=== PATIENT | female | born 1965 | race Caucasian/White ===

== ENCOUNTER → 2018-04-07 10:47 | Outpatient (CLI) | payer BC, SELFPAY ==
--- NOTE | 2018-04-07 10:49 | BI_ITS ---
MAMMOGRAPHY - BILATERAL SCREENING 3-D ABHINAV SYNTHESIS REASON FOR EXAM: Female, 53 years old. Bilateral Screening 3-D tomosynthesis PERTINENT HISTORY: No significant family history. TECHNIQUE: 2-D mammograms and 3-D Abhinav synthesis of the breast (s) were performed. CAD was performed. COMPARISON: September 10, 2016, July 05, 2015 FINDINGS: The breast composition is compose of extremely dense tissue. There are diffuse scattered calcifications bilaterally unchanged. There are lymph nodes in both axillae unchanged. There are no dominant masses or suspicious calcifications. No other significant abnormalities are identified. BI/Bilat Brst Screen Abhinav Add-On IMPRESSION: No mammographic signs of malignancy. Routine yearly mammograms recommended. ASSESSMENT CATEGORY: BIRADS Category 2: Benign. A letter regarding these results will be sent to the patient by the facility within 30 days. FOLLOW UP RECOMMENDATION: Yearly follow up mammogram recommended. (A) Approximately 10% of breast cancers are not detected by mammography. A normal mammogram should not delay biopsy of a clinically suspicious abnormality. Electronically Signed: Javier Brown MD at 14:04 EDT , Service support ,
--- NOTE | 2018-04-07 10:49 | BI_ITS ---
MAMMOGRAPHY - BILATERAL SCREENING 3-D ABHINAV SYNTHESIS REASON FOR EXAM: Female, 53 years old. Bilateral Screening 3-D tomosynthesis PERTINENT HISTORY: No significant family history. TECHNIQUE: 2-D mammograms and 3-D Abhinav synthesis of the breast (s) were performed. CAD was performed. COMPARISON: September 10, 2016, July 05, 2015 FINDINGS: The breast composition is compose of extremely dense tissue. There are diffuse scattered calcifications bilaterally unchanged. There are lymph nodes in both axillae unchanged. There are no dominant masses or suspicious calcifications. No other significant abnormalities are identified. BI/SCREENING MAMM (CAD), BILAT IMPRESSION: No mammographic signs of malignancy. Routine yearly mammograms recommended. ASSESSMENT CATEGORY: BIRADS Category 2: Benign. A letter regarding these results will be sent to the patient by the facility within 30 days. FOLLOW UP RECOMMENDATION: Yearly follow up mammogram recommended. (A) Approximately 10% of breast cancers are not detected by mammography. A normal mammogram should not delay biopsy of a clinically suspicious abnormality. Electronically Signed: Javier Brown MD at 14:04 EDT , Service support ,
== END ==
PROVIDERS: Family Provider Family Medicine; PCP Family Medicine; Visit Provider Obstetrics & Gynecology
DX: Z12.31 Encounter for screening mammogram for malignant neoplasm of breast (principal)
CPT/HCPCS: 77063; 77067

== ENCOUNTER → 2018-09-08 09:47 | Outpatient (CLI) | payer BC, SELFPAY ==
[2018-04-04 09:32] VITALS: BMI 24.7
[2018-09-08 12:09] LABS: Anion Gap 7 (5-15); BUN 14 mg/dL (7-18); BUN/Creat Ratio 17.3 RATIO (10-20); Calcium,Total 9.3 mg/dL (8.5-10.1); Chloride 107 mmol/L (98-107); Cholesterol 218 mg/dL (200); Creatinine, Serum 0.81 mg/dL (0.55-1.02); EST Glomerular Filtration Rate 79 mL/min (>60); Est Glom Filt Rate - Afr Amer 95 mL/min (>60); Glucose 87 mg/dL (74-106); High Density Lipoprotein 83 mg/dL; Potassium 4.4 mmol/L (3.5-5.1); Sodium Level 141 mmol/L (136-145); Triglycerides 60 mg/dL; Very Low Density Lipoprotein 12 mg/dL (5-40)
== END ==
PROVIDERS: Family Provider Family Medicine; PCP Family Medicine; Referring Provider Family Medicine; Visit Provider Family Medicine
DX: I10 Essential (primary) hypertension (principal)
CPT/HCPCS: 36415; 80048; 80061

== ENCOUNTER → 2019-03-22 11:45 | Outpatient (CLI) | payer BC, SELFPAY ==
[2018-04-04 09:32] VITALS: BMI 24.7
[2019-03-22 13:46] LABS: Color, Urine Yellow (Yellow); Glucose, Dipstick Normal (Normal); Ketone-Dipstick Negative (Negative); Leukocyte Esterase-Dipstick 500 /ul (Negative); Nitrite-Dipstick Negative (Negative); Occult Blood-Urine 25 /ul (Negative); Protein-Dipstick 15 mg/dl (Negative); Urine Bilirubin Dipstick Negative (Negative); Urine Clarity Sl. Cloudy (Clear); Urine Urobilinogen Normal (Normal)
[2019-03-22 14:04] LABS: Red Blood Cells-Urine 0-5 SEEN /hpf (0-5); White Blood Cells 50-100 SEEN /hpf (0-5)
[2019-03-22 14:05] LABS: Bacteria RARE /hpf (None Seen); Mucous, Urine RARE /hpf (<or=2+); Squamous Epithelial Cells - UA 0-5 SEEN /hpf (5-10)
== END ==
PROVIDERS: Family Provider Family Medicine; PCP Family Medicine; Visit Provider Family Medicine
DX: R30.0 Dysuria (principal)
CPT/HCPCS: 81001; 87086; 87088

== ENCOUNTER → 2019-04-20 12:09 | Outpatient (CLI) | payer BC, SELFPAY ==
[2018-04-04 09:32] VITALS: BMI 24.7
--- NOTE | 2019-04-20 12:11 | BI_ITS ---
MAMMOGRAPHY - BILATERAL SCREENING 3-D TOMOSYNTHESIS REASON FOR EXAM: Female, 54 years old. Bilateral Screening 3-D tomosynthesis PERTINENT HISTORY: No significant family history. TECHNIQUE: 2-D mammograms and 3-D Tomosynthesis of the breast (s) were performed. CAD was performed. COMPARISON: 04/07/2018 FINDINGS: The breast composition is heterogeneously dense that can obscure small breast masses. Scattered benign calcifications are seen. No dense spiculated masses or suspicious microcalcifications are identified. No architectural distortion is identified. There is no skin thickening or retraction. There has been no significant change since the prior study. BI/SCREEN MAMM (CAD) W/ABHINAV BILAT IMPRESSION: No mammographic signs of malignancy. Routine yearly mammograms recommended. ASSESSMENT CATEGORY: BIRADS Category 2: Benign. A letter regarding these results will be sent to the patient by the facility within 30 days. FOLLOW UP RECOMMENDATION: Yearly follow up mammogram recommended. (A) Approximately 10% of breast cancers are not detected by mammography. A normal mammogram should not delay biopsy of a clinically suspicious abnormality. Electronically Signed: Carl Nelson MD at 15:25 EDT Tel [phone], Service support ,
== END ==
PROVIDERS: Family Provider Family Medicine; PCP Family Medicine; Referring Provider Nurse Practitioner Women's Health; Visit Provider Nurse Practitioner Women's Health
DX: Z12.31 Encounter for screening mammogram for malignant neoplasm of breast (principal)
CPT/HCPCS: 77063; 77067

== ENCOUNTER → 2019-06-09 16:59 | Outpatient (CLI) | payer BC, SELFPAY ==
[2019-06-09 14:14] VITALS: BMI 24.7
[2019-06-15 16:45] LABS: HPV APTIMA, High Risk Negative (Negative)
== END ==
PROVIDERS: Family Provider Family Medicine; PCP Family Medicine; Referring Provider Nurse Practitioner Women's Health; Visit Provider Nurse Practitioner Women's Health
DX: Z12.4 Encounter for screening for malignant neoplasm of cervix (principal)
CPT/HCPCS: 87624; 88175; G0145

== ENCOUNTER → 2020-01-11 13:42 | Outpatient (CLI) | payer BC, SELFPAY ==
[2019-10-19 09:49] VITALS: BMI 24.7
== END ==
PROVIDERS: PCP Family Medicine; Referring Provider Family Medicine; Visit Provider Family Medicine
DX: R39.11 Hesitancy of micturition (principal)
CPT/HCPCS: 87086

== ENCOUNTER → 2020-01-18 13:50 | Outpatient (CLI) | payer BC, SELFPAY ==
[2019-10-19 09:49] VITALS: BMI 24.7
--- NOTE | 2020-01-18 13:59 | US_ITS ---
STUDY: NECK ULTRASOUND REASON FOR EXAM: Female, 54 years old. LT NECK LYMPHADENOPATHY TECHNIQUE: Ultrasound evaluation of the neck was performed with real-time and static mejia-scale imaging. COMPARISON: None. FINDINGS: A benign-appearing 1.46 x 0.28 x 0.46 cm lymph node with eccentric fatty hilus is identified in the left neck. No other lymph node/adenopathy demonstrated. US/Head/Neck Soft Tissue IMPRESSION: Single, benign-appearing left cervical lymph node is seen. Electronically Signed: Moncho Garcia MD at 14:23 EDT , Service support ,
== END ==
PROVIDERS: PCP Family Medicine; Referring Provider Family Medicine; Visit Provider Family Medicine
DX: R59.0 Localized enlarged lymph nodes (principal)
CPT/HCPCS: 76536

== ENCOUNTER → 2020-03-21 07:49 | Outpatient (CLI) | payer BC, SELFPAY ==
[2019-10-19 09:49] VITALS: BMI 24.7
[2020-03-21 10:04] LABS: Absolute Lymphocyte Count 1.96 X10^3/uL (0.83-4.51); Absolute Neutrophil Count 2.6 X10^3/uL (2.0-7.7); Basophil# 0.03 X10^3/uL; Basophil% 0.6 % (0-1); Eosinophil# 0.14 X10^3/uL; Eosinophils% 2.7 % (0-5); Hematocrit 42.8 % (37-47); Hemoglobin 13.9 g/dL (12.0-15.0); Lymphocyte # 1.96 X10^3/ul (4.0); Lymphocyte % 37.5 % (19-41); Mean Corp Hgb Conc 32.5 g/dL (32-36); Mean Corpuscular Hgb 28.8 pg (27.0-32.0); Mean Corpuscular Volume 88.8 fL (81-99); Mean Platelet Vol. 10.4 fl (6.2-12.0); Monocyte% 9.6 % (0-10); NRBC Flagged by Analyzer 0 % (0-5); Neutrophil # 2.58 X10^3/uL (2.7-7.7); Neutrophil % 49.4 % (47-70); Platelet Count 251 K/mm3 (150-450); RBC Distribution Width CV 12.2 % (11.6-14.6); RBC Distribution Width SD 39.6 fl (35.1-43.9); Red Blood Count 4.82 M/mm3 (4.2-5.4); White Blood Count 5.2 K/mm3 (4.4-11.0)
[2020-03-21 10:12] LABS: ALB/GLOB Ratio 1.1 RATIO (0.9-2.4); AST(SGOT) 20 U/L (15-37); Alanine Aminotransfer ALT/SGPT 26 U/L (13-56); Albumin, Serum 3.9 g/dL (3.2-5.0); Alkaline Phosphatase 64 U/L (45-117); Anion Gap 5 (5-15); BUN 17 mg/dL (7-18); BUN/Creat Ratio 23.9 RATIO (10-20); Calcium,Total 8.8 mg/dL (8.5-10.1); Chloride 109 mmol/L (98-107); Cholesterol 226 mg/dL (200); Creatinine, Serum 0.71 mg/dL (0.55-1.02); EST Glomerular Filtration Rate 91 mL/min (>60); Est Glom Filt Rate - Afr Amer 110 mL/min (>60); Globulin 3.5 g/dL (2.2-4.2); Glucose 87 mg/dL (74-106); High Density Lipoprotein 74 mg/dL; Potassium 4.2 mmol/L (3.5-5.1); Protein, Total 7.4 g/dL (6.4-8.2); Sodium Level 140 mmol/L (136-145); Triglycerides 62 mg/dL; Very Low Density Lipoprotein 12 mg/dL (5-40)
== END ==
PROVIDERS: PCP Family Medicine; Referring Provider Family Medicine; Visit Provider Family Medicine
DX: I10 Essential (primary) hypertension (principal); R59.0 Localized enlarged lymph nodes
CPT/HCPCS: 36415; 80053; 80061; 85025

== ENCOUNTER → 2020-07-25 13:02 | Outpatient (CLI) | payer BC, SELFPAY ==
[2019-10-19 09:49] VITALS: BMI 24.7
--- NOTE | 2020-07-25 13:03 | BI_ITS ---
MAMMOGRAPHY - BILATERAL SCREENING REASON FOR EXAM: Female, 55 years old. Routine annual screening examination. PERTINENT HISTORY: Screening TECHNIQUE: Digital bilateral breast abhinav (3D mammographic acquisition) in the CC and MLO projections. 2-D mediolateral oblique (MLO) and craniocaudad (CC) views of both breasts were obtained. CAD: Full Field Digital Mammography with Computer Added Detection was performed. COMPARISON: 04/20/2019 FINDINGS: Breast Composition: Dense There are no dominant masses or suspicious calcifications. No other significant abnormalities are identified. There are scattered calcifications noted in both breasts but these were seen previously and are unchanged. BI/SCREEN MAMM (CAD) W/ABHINAV BILAT IMPRESSION: Stable bilateral screening mammogram. Yearly follow-up mammogram recommended. (A) ASSESSMENT CATEGORY: BIRADS Category 1: Negative. A letter regarding these results will be sent to the patient by the facility within 30 days. Approximately 10% of breast cancers are not detected by mammography. A normal mammogram should not delay biopsy of a clinically suspicious abnormality. [id number] Electronically Signed: Matt Deluna, at 10:06 EST Tel , Service support ,
== END ==
PROVIDERS: PCP Family Medicine; Referring Provider Obstetrics & Gynecology; Visit Provider Obstetrics & Gynecology
DX: Z12.31 Encounter for screening mammogram for malignant neoplasm of breast (principal)
CPT/HCPCS: 77063; 77067

== ENCOUNTER → 2021-03-27 09:36 | Outpatient (CLI) | payer BC, SELFPAY ==
[2020-07-25 13:38] VITALS: BMI 25.9
[2021-03-27 13:06] LABS: ALB/GLOB Ratio 1.1 RATIO (0.9-2.4); AST(SGOT) 19 U/L (15-37); Alanine Aminotransfer ALT/SGPT 23 U/L (13-56); Albumin, Serum 3.6 g/dL (3.2-5.0); Alkaline Phosphatase 57 U/L (45-117); Anion Gap 5 (5-15); BUN 17 mg/dL (7-18); BUN/Creat Ratio 26.2 RATIO (10-20); Calcium,Total 8.9 mg/dL (8.5-10.1); Chloride 106 mmol/L (98-107); Cholesterol 213 mg/dL (200); Creatinine, Serum 0.65 mg/dL (0.55-1.02); EST Glomerular Filtration Rate 101 mL/min (>60); Est Glom Filt Rate - Afr Amer 122 mL/min (>60); Globulin 3.4 g/dL (2.2-4.2); Glucose 86 mg/dL (74-106); High Density Lipoprotein 79 mg/dL; Sodium Level 138 mmol/L (136-145); Triglycerides 31 mg/dL; Very Low Density Lipoprotein 6 mg/dL (5-40)
== END ==
PROVIDERS: PCP Family Medicine; Referring Provider Family Medicine; Visit Provider Family Medicine
DX: I10 Essential (primary) hypertension (principal)
CPT/HCPCS: 36415; 80053; 80061

== ENCOUNTER 2021-10-10 14:28 | Outpatient (CLI) | payer BC, SELFPAY ==
[2021-10-10 18:31] LABS: Vitamin B12 894 pg/mL (211-911); Vitamin D,25 Hydroxy 37.9 ng/mL
[2021-10-10 18:41] LABS: Anion Gap 6 (5-15); BUN 16 mg/dL (7-18); BUN/Creat Ratio 24.4 RATIO (10-20); Calcium,Total 9.3 mg/dL (8.5-10.1); Chloride 107 mmol/L (98-107); Creatinine, Serum 0.66 mg/dL (0.55-1.02); EST Glomerular Filtration Rate 99 mL/min (>60); Est Glom Filt Rate - Afr Amer 120 mL/min (>60); Glucose 84 mg/dL (74-106); Potassium 3.6 mmol/L (3.5-5.1); Sodium Level 141 mmol/L (136-145); Thyroid Stim Hormone (TSH) 0.49 uIU/mL (0.358-3.74)
== END 2021-10-10 23:59 | disposition home or self-care (01) ==
LOC: MFPLAB 14:29
PROVIDERS: PCP Nurse Practitioner Family; Referring Provider Nurse Practitioner Family; Visit Provider Nurse Practitioner Family
DX: I10 Essential (primary) hypertension (principal); R53.83 Other fatigue; E53.8 Deficiency of other specified B group vitamins; E55.9 Vitamin D deficiency, unspecified
CPT/HCPCS: 36415; 80048; 82306; 82607; 84443

== ENCOUNTER → 2022-04-10 | Outpatient (CLI) | payer BC, SELFPAY ==
[2022-04-10 18:08] LABS: Vitamin B12 555 pg/mL (211-911); Vitamin D,25 Hydroxy 32.6 ng/mL
[2022-04-10 18:24] LABS: Anion Gap 6 (5-15); BUN 15 mg/dL (7-18); BUN/Creat Ratio 18.6 RATIO (10-20); Calcium,Total 9.7 mg/dL (8.5-10.1); Chloride 106 mmol/L (98-107); Cholesterol 252 mg/dL (200); Creatinine, Serum 0.81 mg/dL (0.55-1.02); EST Glomerular Filtration Rate 78 mL/min (>60); Est Glom Filt Rate - Afr Amer 94 mL/min (>60); Glucose 90 mg/dL (74-106); High Density Lipoprotein 84 mg/dL; Potassium 3.5 mmol/L (3.5-5.1); Sodium Level 139 mmol/L (136-145); Triglycerides 71 mg/dL; Very Low Density Lipoprotein 14 mg/dL (5-40)
== END | disposition home or self-care (01) ==
LOC: MFPLAB 15:00
PROVIDERS: PCP Family Medicine; Referring Provider Family Medicine; Visit Provider Family Medicine
DX: I10 Essential (primary) hypertension (principal); R53.83 Other fatigue; E53.8 Deficiency of other specified B group vitamins; E55.9 Vitamin D deficiency, unspecified; E78.5 Hyperlipidemia, unspecified
CPT/HCPCS: 36415; 80048; 80061; 82306; 82607; 84443

== ENCOUNTER → 2022-09-05 | Outpatient (CLI) | payer BC, SELFPAY | END | disposition home or self-care (01) | LOC: LABSPEC 15:04 | PROVIDERS: PCP Family Medicine; Referring Provider Obstetrics & Gynecology; Visit Provider Obstetrics & Gynecology | DX: N39.0 Urinary tract infection, site not specified (principal) | CPT/HCPCS: 87086; 87088; 87186 ==

== ENCOUNTER → 2022-10-30 | Outpatient (CLI) | payer BC, SELFPAY ==
--- NOTE | 2022-10-30 14:13 | BI_ITS ---
MAMMOGRAPHY - BILATERAL SCREENING REASON FOR EXAM: Female, 57 years old. Routine annual screening examination. PERTINENT HISTORY: Non-contributory. TECHNIQUE: Digital bilateral breast abhinav (3D mammographic acquisition) in the CC and MLO projections. 2-D mediolateral oblique (MLO) and craniocaudad (CC) views of both breasts were obtained. CAD: Full Field Digital Mammography with Computer Added Detection was performed. COMPARISON: Comparison is made with prior study dated March 05, 2022 and July 25, 2020. FINDINGS: Breast Composition: The breasts are extremely dense, which lowers the sensitivity of mammography. There are no dominant masses or suspicious calcifications. Stable scattered bilateral microcalcifications. Stable small benign-appearing bilateral axillary lymph nodes. No other significant abnormalities are identified. There has been no significant change since the prior study. BI/SCRN MAMM (CAD)W/ABHINAV BILAT IMPRESSION: Stable bilateral screening mammogram. Yearly follow-up mammogram recommended. (A) ASSESSMENT CATEGORY: BIRADS Category 2: Benign. A letter regarding these results will be sent to the patient by the facility within 30 days. Approximately 10% of breast cancers are not detected by mammography. A normal mammogram should not delay biopsy of a clinically suspicious abnormality. [id number] Electronically Signed: Jacobo Aguilar MD at 8:51 EST ,
== END | disposition home or self-care (01) ==
LOC: OPBI 14:10
PROVIDERS: PCP Family Medicine; Visit Provider Obstetrics & Gynecology
DX: Z12.31 Encounter for screening mammogram for malignant neoplasm of breast (principal)
CPT/HCPCS: 77063; 77067

== ENCOUNTER → 2022-12-20 | Outpatient (CLI) | payer BC, SELFPAY ==
--- NOTE | 2022-12-20 11:47 | RAD_ITS ---
STUDY: X-RAY - SACRUM/COCCYX REASON FOR EXAM: Female, 57 years old. ongoing pain TECHNIQUE: 3 view(s) of the sacrum and coccyx were obtained. COMPARISON: None. FINDINGS: Normal bilateral sacroiliac joints. Normal visualized sacral ala and fused sacral bodies. Normal sacrococcygeal junction with a normal angulation. Normal coccygeal segments. The presacral soft tissue structures are unremarkable. RAD/Sacrum-Coccyx min 2 Views IMPRESSION: Normal x-rays of the sacrum and coccyx. Electronically Signed: Gabriel Figueroa MD at 19:01 EDT ,
== END | disposition home or self-care (01) ==
LOC: MTRAD 11:47
PROVIDERS: PCP Family Medicine; Referring Provider Nurse Practitioner Family; Visit Provider Nurse Practitioner Family
DX: M53.3 Sacrococcygeal disorders, not elsewhere classified (principal)
CPT/HCPCS: 72220

== ENCOUNTER → 2023-03-17 | Outpatient (CLI) | payer BC, SELFPAY | END | disposition home or self-care (01) | LOC: LABSPEC 14:51 | PROVIDERS: PCP Family Medicine; Referring Provider Physician Assistant Surgical; Visit Provider Physician Assistant Surgical | DX: R30.0 Dysuria (principal) | CPT/HCPCS: 87086 ==

== ENCOUNTER → 2023-09-24 | Outpatient (CLI) | payer BC, SELFPAY ==
--- OUTSIDE RECORDS SUMMARY | 2023-09-24 17:21 | XMS RPT_ITS | CCD ---
Author Name Unknown Address [address] [place] [address] Organization [facility] Results Test Name Value Interpretation Reference Range Facil ity Summary Purpose Family History No Family History Records Found Advance Directives No Advanced Directives Records Found Additional Source Comments INFORMATION SOURCE (unrecogn ized section and content) FOR RECORDS PERTAINING TO PATIENTS WHO ARE OR HAVE BEEN ENROLLED IN A CHEMICAL DEPENDENCY/SUBSTANCEABUSE PROGRAM, SOME INFORMATION MAY BE OMITTED. This clinical summary was aggregated from multiple sources. Caution should be exercised in using it in the provision of clinical care. This summary normalizes information from multiple sources, and as a consequence, information in this document may materially change the coding, format and clinical context of patient data. In addition, data may be omitted in some cases. CLINICAL DECISIONS SHOULD BE BASED ON THE PRIMARY CLINICAL RECORDS. [employer] provides no warranty or guarantee of the accuracy or completeness of information in this document.
[2023-09-29 15:07] LABS: HPV APTIMA, High Risk Negative (Negative)
== END | disposition home or self-care (01) ==
LOC: US 16:21
PROVIDERS: PCP Family Medicine; Referring Provider Obstetrics & Gynecology; Visit Provider Obstetrics & Gynecology
DX: Z12.4 Encounter for screening for malignant neoplasm of cervix (principal)
CPT/HCPCS: 87624; 88175; G0145

== ENCOUNTER → 2023-09-30 | Outpatient (CLI) | payer BC, SELFPAY ==
--- NOTE | 2023-09-30 15:39 | US_ITS ---
INDICATION: ABD PAIN-LLQ EXAMINATION: Ultrasound US Pelvis Non OB Complete With Transvaginal Imaging TECHNIQUE: Transabdominal and transvaginal pelvic ultrasound was performed. Grayscale, spectral waveform, and color flow Doppler evaluation of the adnexa. COMPARISON: None. FINDINGS: UTERUS: Retroverted. The uterus measures 7.8 x 4.2 x 3.5 cm. Markedly heterogenous myometrial echotexture without well-defined mass. The endometrial stripe measures 1.2 mm in AP diameter which is within normal limits. Cervical canal contains fluid with irregular wall thickening up to 6 mm. Prominent periuterine vasculature. RIGHT OVARY: 1.8 x 1.4 x 0.9 cm. Non-enlarged, normal echogenicity. There is normal arterial inflow and venous outflow present in the right ovary. LEFT OVARY: 2.7 x 1.6 x 1.4 cm. Anechoic cyst measures up to 1.3 cm. There is normal arterial inflow and venous outflow present in the left ovary. FREE FLUID: None. US/Pelvic w/ Transvaginal IMPRESSION: Markedly heterogenous uterine myometrial echotexture without distinct focal mass lesion. Abnormal appearance of the cervix with wall thickening and fluid contents in the cervical canal. Recommend gynecological consultation and correlation with Pap smear. 13 mm simple cyst left ovary. Recommend routine annual sonographic follow-up. Electronically Signed: Vikas Pillai MD at 20:30 EST ,
--- OUTSIDE RECORDS SUMMARY | 2023-09-30 15:57 | XMS RPT_ITS | CCD ---
Author Name Unknown Address [address] [place] [address] Organization [facility] Results Test Name Value Interpretation [...] BE BASED ON THE PRIMARY CLINICAL RECORDS. [employer] provides no warranty or guarantee of the accuracy or completeness of information in this document.
== END | disposition home or self-care (01) ==
PROVIDERS: PCP Family Medicine; Referring Provider Obstetrics & Gynecology; Visit Provider Obstetrics & Gynecology
DX: R10.9 Unspecified abdominal pain (principal)
CPT/HCPCS: 76830; 76856

== ENCOUNTER → 2023-09-30 | Outpatient (CLI) | payer BC, SELFPAY ==
--- OUTSIDE RECORDS SUMMARY | 2023-09-30 08:31 | XMS RPT_ITS | CCD ---
Author Name Unknown Address [address] [place] [address] Organization [facility] Results Test Name Value Interpretation [...] BE BASED ON THE PRIMARY CLINICAL RECORDS. [employer] provides no warranty or guarantee of the accuracy or completeness of information in this document.
[2023-09-30 09:56] LABS: Hemoglobin 14.2 g/dL (12.0-15.0); Mean Corp Hgb Conc 33.8 g/dL (32-36); Mean Corpuscular Hgb 29.1 pg (27.0-32.0); Mean Corpuscular Volume 86.1 fL (81-99); Mean Platelet Vol. 9.9 fl (6.2-12.0); Platelet Count 236 K/mm3 (150-450); RBC Distribution Width CV 12.6 % (11.6-14.6); RBC Distribution Width SD 39.7 fl (35.1-43.9); Red Blood Count 4.88 M/mm3 (4.2-5.4); White Blood Count 4.5 K/mm3 (4.4-11.0)
[2023-09-30 10:31] LABS: Vitamin B12 715 pg/mL (211-911); Vitamin D,25 Hydroxy 53.7 ng/mL
[2023-09-30 10:48] LABS: Microalbumin,Random Urine < 5.0 mg/L (NO RANGE EST.)
[2023-09-30 11:02] LABS: ALB/GLOB Ratio 1.1 RATIO (0.9-2.4); AST(SGOT) 17 U/L (15-37); Alanine Aminotransfer ALT/SGPT 32 U/L (13-56); Albumin, Serum 3.9 g/dL (3.2-5.0); Alkaline Phosphatase 66 U/L (45-117); Anion Gap 3 (5-15); BUN 15 mg/dL (7-18); BUN/Creat Ratio 20.4 RATIO (10-20); Calcium,Total 9.3 mg/dL (8.5-10.1); Chloride 105 mmol/L (98-107); Cholesterol 236 mg/dL (200); Creatinine, Serum 0.73 mg/dL (0.55-1.02); EST Glomerular Filtration Rate 87 mL/min (>60); Est Glom Filt Rate - Afr Amer 105 mL/min (>60); Globulin 3.5 g/dL (2.2-4.2); Glucose 100 mg/dL (74-106); High Density Lipoprotein 78 mg/dL; Potassium 4.2 mmol/L (3.5-5.1); Protein, Total 7.4 g/dL (6.4-8.2); Sodium Level 135 mmol/L (136-145); Thyroid Stim Hormone (TSH) 0.69 uIU/mL (0.358-3.74); Triglycerides 68 mg/dL; Very Low Density Lipoprotein 14 mg/dL (5-40)
== END | disposition home or self-care (01) ==
LOC: MTLAB 08:18
PROVIDERS: PCP Family Medicine; Referring Provider Family Medicine; Visit Provider Family Medicine
DX: I10 Essential (primary) hypertension (principal); E78.5 Hyperlipidemia, unspecified; E55.9 Vitamin D deficiency, unspecified; E53.8 Deficiency of other specified B group vitamins
CPT/HCPCS: 36415; 80053; 80061; 82043; 82306; 82570; 82607; 84443; 85027

== ENCOUNTER → 2023-12-10 | Outpatient (CLI) | payer BC, SELFPAY ==
--- NOTE | 2023-12-10 12:49 | BI_ITS ---
MAMMOGRAPHY - BILATERAL SCREENING REASON FOR EXAM: Female, 58 years old. Routine annual screening examination. PERTINENT HISTORY: Non-contributory. TECHNIQUE: Digital bilateral breast abhinav (3D mammographic acquisition) in the CC and MLO projections. 2-D mediolateral oblique (MLO) and craniocaudad (CC) views of both breasts were obtained. CAD: Full Field Digital Mammography with Computer Added Detection was performed. COMPARISON: Comparison is made with prior examination of October 30, 2022 and September 05, 2021. FINDINGS: Breast Composition: The breasts are extremely dense, which lowers the sensitivity of mammography. There are no dominant masses or suspicious calcifications. Stable bilateral fat containing axillary lymph nodes. Stable scattered bilateral microcalcifications. No other significant abnormalities are identified. There has been no significant change since the prior study. BI/SCRN MAMM (CAD)W/ABHINAV BILAT IMPRESSION: Stable bilateral screening mammogram. Yearly follow-up mammogram recommended. (A) ASSESSMENT CATEGORY: BIRADS Category 2: Benign. A letter regarding these results will be sent to the patient by the facility within 30 days. Approximately 10% of breast cancers are not detected by mammography. A normal mammogram should not delay biopsy of a clinically suspicious abnormality. [id number] Electronically Signed: Jacobo Aguilar MD at 14:59 EDT ,
== END | disposition home or self-care (01) ==
LOC: OPBI 12:49
PROVIDERS: PCP Family Medicine; Referring Provider Obstetrics & Gynecology; Visit Provider Obstetrics & Gynecology
DX: Z12.31 Encounter for screening mammogram for malignant neoplasm of breast (principal)
CPT/HCPCS: 77063; 77067

== ENCOUNTER → 2024-01-08 | Outpatient (CLI) | payer BC, SELFPAY ==
[2024-01-08 16:37] LABS: Uric Acid 3.3 mg/dL (2.6-6.0)
== END | disposition home or self-care (01) ==
LOC: MFPLAB 12:19
PROVIDERS: PCP Family Medicine; Visit Provider Family Medicine
DX: M79.673 Pain in unspecified foot (principal)
CPT/HCPCS: 36415; 84550

== ENCOUNTER → 2024-01-15 | Outpatient (CLI) | payer BC, SELFPAY ==
--- NOTE | 2024-01-15 16:06 | RAD_ITS ---
STUDY: X-RAY - RIGHT FOOT CLINICAL: Female, 58 years old. RIght foot pain TECHNIQUE: 3 view(s) of the foot. COMPARISON: None. FINDINGS: Normal talus, calcaneus, and tarsal bones. Normal visualized subtalar, talonavicular, calcaneocuboid, tarsal and tarsometatarsal articulations. Normal metatarsi. Mild degenerative changes of the metatarsophalangeal joint of the great toe. Normal tibial and fibular sesamoid bones. Normal interphalangeal joint of the great toe. Normal phalanges of the great toe. Normal second through fifth metatarsophalangeal joints. Normal interphalangeal joints and phalanges of the lesser toes. The soft tissue structures are unremarkable. RAD/Foot min 3 Views IMPRESSION: Mild degenerative changes. No acute fracture or other significant bony pathology. Electronically Signed: Gabriel Figueroa MD at 22:35 EDT ,
== END | disposition home or self-care (01) ==
LOC: MTRAD 16:01
PROVIDERS: PCP Family Medicine; Referring Provider Family Medicine; Visit Provider Family Medicine
DX: M79.673 Pain in unspecified foot (principal)
CPT/HCPCS: 73630

== ENCOUNTER → 2024-04-21 | Outpatient (CLI) | payer BC, SELFPAY ==
[2024-04-21 10:30] LABS: Bacteria 0 SEEN /hpf (None Seen); Mucous, Urine 0 SEEN /hpf (<or=2+); Red Blood Cells-Urine 0 SEEN /hpf (0-5)
[2024-04-21 10:42] LABS: Color, Urine Yellow (Yellow); Glucose, Dipstick Normal (Normal); Ketone-Dipstick Negative (Negative); Leukocyte Esterase-Dipstick 500 /ul (Negative); Nitrite-Dipstick Negative (Negative); Occult Blood-Urine 25 /ul (Negative); Protein-Dipstick Negative (Negative); Specific Gravity, Urine 1.005 (1.002-1.030); Urine Bilirubin Dipstick Negative (Negative); Urine Clarity Sl. Cloudy (Clear); Urine Urobilinogen Normal (Normal); Urine pH 6.5 (5.0 - 8.0)
[2024-04-21 11:10] LABS: Squamous Epithelial Cells - UA 0-5 SEEN /hpf (5-10); White Blood Cells 25-50 SEEN /hpf (0-5)
== END | disposition home or self-care (01) ==
LOC: LABSPEC 10:18
PROVIDERS: PCP Family Medicine; Referring Provider Physician Assistant; Visit Provider Physician Assistant
DX: R30.0 Dysuria (principal)
CPT/HCPCS: 81001; 87086

== ENCOUNTER → 2024-05-04 | Outpatient (CLI) | payer BC, SELFPAY ==
--- NOTE | 2024-05-04 11:23 | RAD_ITS ---
STUDY: X-RAY - LEFT KNEE REASON FOR EXAM: Female, 59 years old. Pain -- left knee per Irma TECHNIQUE: 4 view(s) of the knee. COMPARISON: None. FINDINGS: Normal visualized distal femur. Normal visualized proximal tibia and fibula. Normal proximal tibiofibular articulation. Normal medial femorotibial compartment. Normal lateral femorotibial compartment. Normal patellofemoral articulation. The soft tissue structures are unremarkable. RAD/Knee 4 or More Views IMPRESSION: Normal x-ray examination of the knee. Electronically Signed: Isra Lora MD at 8:30 EDT ,
== END | disposition home or self-care (01) ==
LOC: MTRAD 11:17
PROVIDERS: PCP Family Medicine; Referring Provider Family Medicine; Visit Provider Family Medicine
DX: M25.569 Pain in unspecified knee (principal)
CPT/HCPCS: 73564

== ENCOUNTER → 2024-11-11 | Outpatient (CLI) | payer OTHER, SELFPAY | END | disposition home or self-care (01) | LOC: LABSPEC 15:11 | PROVIDERS: PCP Family Medicine | DX: N39.0 Urinary tract infection, site not specified (principal) | CPT/HCPCS: 87086 ==

== ENCOUNTER → 2024-12-28 | Outpatient (CLI) | payer OTHER, SELFPAY ==
--- NOTE | 2024-12-28 10:45 | BI_ITS ---
EXAM: SCRN MAMM (CAD)W/ABHINAV BILAT 12/28/2024 CLINICAL HISTORY: F, Age 59 y/o , SCREENING MAMMOGRAM TECHNIQUE: Bilateral screening digital breast tomosynthesis with 2D and 3D images. Computer aided detection. COMPARISON: Prior exam(s) dated 12/10/2023, 10/30/2022, 09/05/2021, 07/25/2020. FINDINGS: TISSUE DENSITY: The breast tissue is extremely dense which lowers the sensitivity of mammography. The mammogram demonstrates that the patient has dense breasts. Supplemental screening with whole breast ultrasound or MRI may be considered for further evaluation. Bilateral Breast Mammographic Findings: No significant masses, calcifications or other abnormalities are identified. BI/SCRN MAMM (CAD)W/ABHINAV BILAT IMPRESSION: Right Breast: BIRADS 1 NEGATIVE. Left Breast: BIRADS 1 NEGATIVE. OVERALL FINAL ASSESSMENT: BIRADS 1 NEGATIVE. RECOMMENDATION: Routine annual follow-up in 1 Year A letter with findings and recommendations will be mailed to the patient. Reading Location: [id number]
== END | disposition home or self-care (01) ==
PROVIDERS: PCP Family Medicine; Referring Provider Obstetrics & Gynecology; Visit Provider Obstetrics & Gynecology
DX: Z12.31 Encounter for screening mammogram for malignant neoplasm of breast (principal)
CPT/HCPCS: 77063; 77067

== ENCOUNTER → 2025-03-29 | Outpatient (CLI) | payer OTHER, SELFPAY ==
[2025-03-29 14:25] LABS: Hematocrit 42.0 % (37-47); Hemoglobin 13.9 g/dL (12.0-15.0); Immature Granulocytes Count 0.010 X10^3/uL (0.0-0.0); Mean Corp Hgb Conc 33.1 g/dL (32-36); Mean Corpuscular Volume 87.5 fL (81-99); Mean Platelet Vol. 10.2 fl (6.2-12.0); NRBC Flagged by Analyzer 0 % (0-5); Platelet Count 249 K/mm3 (150-450); RBC Distribution Width CV 12.4 % (11.6-14.6); RBC Distribution Width SD 39.8 fl (35.1-43.9); Red Blood Count 4.80 M/mm3 (4.2-5.4); White Blood Count 5.6 K/mm3 (4.4-11.0)
[2025-03-29 14:34] LABS: AST(SGOT) 21 U/L (<=31); Alanine Aminotransfer ALT/SGPT 22 U/L (<=34); Albumin, Serum 4.4 g/dL (3.5-5.0); Alkaline Phosphatase 71 U/L (35-104); Anion Gap 11 (5-15); BUN 17 mg/dL (4-19); BUN/Creat Ratio 22.9 RATIO (10-20); Calcium,Total 9.8 mg/dL (7.6-11.0); Carbon Dioxide 22.6 mmol/L (21.0-32.0); Chloride 105 mmol/L (98-108); Cholesterol 271 mg/dL (<=200); Globulin 2.8 g/dL (2.2-4.2); Glucose 96 mg/dL (70-99); Low Density Lipoprotein Calc. 179 mg/dL; Potassium 4.3 mmol/L (3.3-5.1); Triglycerides 49 mg/dL; Very Low Density Lipoprotein 10 mg/dL (5-40); cholesterol:hdl ratio screen 3.32
== END | disposition home or self-care (01) ==
LOC: MTLAB 10:00
PROVIDERS: PCP Family Medicine; Referring Provider Family Medicine; Visit Provider Family Medicine
DX: I10 Essential (primary) hypertension (principal)
CPT/HCPCS: 36415; 80053; 80061; 85025

== ENCOUNTER → 2025-07-27 | Outpatient (CLI) | payer OTHER, SELFPAY ==
--- OUTSIDE RECORDS SUMMARY | 2025-07-27 15:35 | XMS RPT_ITS | CCD ---
Author Organization [facility] Care Team Providers Care Patrol Lady Name Role Phone DO Amber Metcalf Primary Care Provider DO Amber Metcalf M Referring Provider Dr. Diana Null Attending Provider Care Physician, No Primary Referring Provider Un available Dr. Nona Campbell Attending Provider DO Amber Metcalf M Primary Care Provider DO Amber Metcalf Referring Provider REJI Orlando Attending Provider DO Amber Metcalf M Primary Care Provider DO Amber Metcalf M Referring Provider Dr. Nona Campbell Attending Provider DO Amber Metcalf M Primary Care Provider DO Amber Metcalf M Referring Provider Dr. Nona Campbell Attending Provider DREW MIRANDA Primary Care Unavailable Drew Miranda DO Primary Care Provider Akash Henderson MD Primary Care Provider Akash Henderson MD Referring Provider Dr. Nona Campbell DO Attending Provider Saira GIRON-CSally Attending Provider Saira GIRON-CSally Referring Provider Dr. Nona Campbell DO Referring Provider Beatriz DOHERTY, Akash Primary Care Provider Dr. Nona Campbell DO Attending Provider Beatriz DOHERTY, Akash Attending Provider Akash Henderson MD Referring Provider Beatriz, Chalon Attending Unavailable Beatriz, Chalon Referring Unavailable Beatriz, Chalon Primary Care Unavailable Saira TRIAGE CLINICIAN, Sally Attending Unavailable Saira TRIAGE CLINICIAN, Sally Referring Unavailable Beatriz, Chalon Primary Care Unavailable Vande Velde, Nona Referring Unavailabl e Beatriz, Chalon Primary Care Unavailable Vandherrera Winkler, Nona Attending Unavailabl e Beatriz, Chalon Attending Unavailable Beatriz, Chalon Referring Unavailable Beatriz, Chalon Primary Care Unavailable Beatriz, Chalon Primary Care Unavailable Nico Flynn Attending Unavailable Beatriz, Chalon Referring Unavailable Vande Vellowell, Nona Attending Unavailabl e Beatriz, Chalon Referring Unavailable Beatriz, Chalon Primary Care Unavailable Nico Flynn Attending Unavailable Nico Flynn Referring Unavailable Beatriz, Chalon Primary Care Unavailable Allergies Allergy Classification Reported Allergen(s) Allergy Type Date of Onset Reaction(s) Facility (10 sources) Cefuroxime Drug Allergy 3 unknown [facility] (12 sources) Erythromycin Drug Allergy 0 Unknown [facility] (11 sources) Penicillins; Translations: [PENICILLINS] Allergy to substance 0 unknown [facility] (3 sources) Cefuroxime; Translations: [CEFUROXIME AXETIL] Drug Allergy 0 Other: See Comments [facility] Repository (1 source) Erythromycin; Translations: [ERYTHROMYCIN] Drug Allergy 0 [facility] Repository (2 sources) Penicillins Drug Allergy 0 Unknown [facility] (1 source) Cefuroxime Drug Allergy 5 [facility] Repository (1 source) Erythromycin Drug Allergy 5 [facility] Repository (1 source) Penicillins Drug allergy (disorder) 5 [facility] Repository Medications Current Medications Medication Drug Class(es) Dates Sig (Normalized) Sig (Original) ascorbic acid 500 mg oral capsule (20 sources) Vitamin C Start: 09-17-2023 Ascorbic Acid (Vitamin C) 500 mg capsule Active mg PO September 17, 2023 1:00am Start: 09-17-2023 Ascorbic Acid (Vitamin C) Active MG PO September 17, 2023 1:00am Start: 09-05-2021 End: 03-17-2023 Ascorbic Acid (Vitamin C) 50 0 mg capsule Discontinued mg PO September 05, 2021 1:00am March 17, 2023 11:41am Start: 09-05-2021 End: 03-17-2023 Ascorbic Acid (Vitamin C) Discontinued MG PO September 05, 2021 1:00am March 17, 2023 11:41am Start: 01-13-2018 End: 06-09-2019 take 1 tablet by mouth once daily Ascorbic Acid (Vitamin C) 1,500 mg tablet extended release Discontinued 1500 mg PO daily January 13, 2018 12:00am June 09, 2019 2:14pm Start: 03-02-2013 take 1 tablet by [facility] three times daily ascorbic acid (VITAMIN C) 500 mg tablet Take 1 tablet by mouth three times daily. 03/02/2013 Active cholecalciferol 0.01 mg oral capsule (20 sources) Vitamin D Start: 09-17-2023 take 1 capsule by mouth once daily Cholecalciferol (Vitamin D3) 10 mcg (400 unit) capsule Active 10 ug PO DAILY September 17, 2023 1:00am Start: 09-17-2023 take 10 ug by mouth once daily Cholecalciferol (Vitamin D3) Active 10 MCG PO DAILY September 17, 2023 1:00am Start: 09-17-2023 take 10 ug by mouth once daily Cholecalciferol (Vitamin D3) Active 10 MCG PO DAILY September 17, 2023 12:00am Start: 07-25-2020 End: 03-17-2023 take 1 capsule by mouth once daily Cholecalciferol (Vitamin D3) 50 mcg (2,000 unit) capsule Discontinued 50 ug PO DAILY July 25, 2020 1:00am March 17, 2023 11:41am Start: 01-13-2018 End: 04-04-2018 take 1 capsule by mouth once daily Cholecalciferol (Vitamin D3) 400 unit capsule Discontinued 400 U PO daily January 13, 2018 12:00am April 04, 2018 9:34am COMPOUNDED PRESCRIPTION (2 sources) Start: 10-15-2010 COMPOUNDED PRESCRIPTION D-3 1000IU take once daily 0 10/15/2010 Active cycloSPORINE (2 sources) Calcineurin Inhibitor Immunosuppressant CYCLOSPORINE (RESTASIS OPHTHALMIC) Use in eyes. Active estradiol 0.1 mg/ml vaginal cream (2 sources) Estrogen Start: 01-14-2017 estradiol (ESTRACE) 0.01 % (0.1 mg/gram) vaginal cream pea-sized amount to lower vagina qhs 3 times a week 1 Tube 1 01/14/2017 Active fexofenadine hydrochloride 180 mg oral tablet (20 sources) Histamine-1 Receptor Antagonist Start: 09-17-2023 take 1 tablet by mouth once daily Fexofenadine ([facility]) 180 mg tablet Active 180 mg PO DAILY September 17, 2023 1:00am Start: 07-25-2020 End: 03-17-2023 take 1 tablet by mouth once daily Fexofenadine ([facility]) 180 mg tablet Discontinued 180 mg PO DAILY July 25, 2020 1:00am March 17, 2023 11:41am Start: 01-13-2018 End: 01-13-2018 take 1 tablet by mouth once daily Fexofenadine ([facility]) 180 mg tablet Discontinued 180 mg PO daily January 13, 2018 12:00am January 13, 2018 1:56pm Start: 07-04-2010 End: 06-09-2019 take 1 tablet by mouth twice daily Fexofenadine ([facility]) 60 mg tablet Discontinued 60 mg PO TWICE A DAY April 04, 2018 12:00am June 09, 2019 2:14pm Fish Oil-DHA-EPA 1,200-144-216 mg cap (2 sources) Fish Oil-DHA-EPA 1,200-144-216 mg cap Take by mouth. Active folic acid 0.4 mg oral tablet (3 sources) Start: 11-04-19 25 take 0.4 mg by mouth once daily Folic Acid 400 mcg tablet Active 0.4 mg PO daily November 03, 2024 1:00am Garlic preparation (2 sources) Non-Standardized Food Allergenic Extract Garlic cap Take by mouth once daily. Active ibuprofen 200 mg oral tablet (2 sources) Nonsteroidal Anti-inflammatory Drug Start: 07-04-20 10 ibuprofen (ADVIL) 200 mg ORAL tablet take as directed as needed 0 07/04/2010 Active lactobacillus combination no.8 (ADULT PROBIOTIC ORAL) (2 sources) lactobacillus combination no.8 (ADULT PROBIOTIC ORAL) Take by mouth. Active lisinopril 10 mg oral tablet (20 sources) Angiotensin Converting Enzyme Inhibitor Start: 07-25-20 20 take 1 tablet by mouth once daily Lisinopril 10 mg tablet Active 10 mg PO DAILY July 25, 2020 1:00am Start: 01-13-2018 End: 07-25-2020 take 1 tablet by mouth once daily Lisinopril 5 mg tablet Discontinued 5 mg PO daily January 13, 2018 12:00am July 25, 2020 2:39pm Magnesium (2 sources) Magnesium 250 mg tab Take 250 mg by mouth. Active mecobalamin 5 mg disintegrating oral tablet (3 sources) Start: Mecobalamin (Vitamin B12) 5,000 mcg tablet,disintegrating Active ug PO November 03, 2024 1:00am MULTI-VITAMIN ORAL (2 sources) MULTI-VITAMIN OR AL Take by mouth. Active nitrofurantoin, macrocrystals 25 mg / nitrofurantoin, monohydrate 75 mg oral capsule (6 sources) Nitrofuran Antibacterial Start: take 1 capsule by mouth once daily at mealtime Nitrofurantoin Monohyd/M-Cryst (Macrobid) 100 mg capsule Active 100 mg PO daily 90 4 November 03, 2024 1:00am take after intercourse - must administer with a meal/food Start: 04-20-2024 End: 04-25-2024 take 1 capsule by mouth every twelve hours at mealtime Nitrofurantoin Monohyd/M-Cryst (Macrobid) 100 mg capsule Discontinued 100 mg PO Q12H 10 5 0 April 20, 2024 12:00am April 24, 2024 12:00am April 25, 2024 12:04am must administer with a meal/food phenazopyridine hydrochloride 100 mg oral tablet (2 sources) Start: 01-24-2017 take 1 tablet by mouth every eight hours as needed phenazopyridine (PYRIDIUM) 100 mg tablet Take 1 tablet by mouth three times daily as needed. 12 tablet 01/24/2017 Active UBIDECARENONE (CO Q-10 ORAL) (2 sources) UBIDECARENONE (C O Q-10 ORAL) Take by mouth. Active Vitamin B Complex (6 sources) Start: 09-17-2023 take 1 tablet by mouth once daily Vitamin B Complex Active 1 TABLET PO DAILY September 17, 2023 1:00am Start: 09-17-2023 take 1 tablet by mouth once da wally Vitamin B Complex Active 1 TABLET PO DAILY September 17, 2023 12:00am VITAMIN B COMPLE X (SUPER B COMPLEX ORAL) Take by mouth. Active Completed/Discontinued Medications Medication Drug Class(es) Dates Sig (Normalized) Sig (Original) acetaminophen 325 mg oral capsule (8 sources) Start: 03-17-2023 End: 09-17-2023 take 1 capsule by mouth once as needed Acetaminophen (Tylenol) 325 mg capsule Discontinued 325 mg PO ONCE as needed March 17, 2023 12:00am September 17, 2023 4:33pm calcium carbonate 1625 mg oral tablet (7 sources) Start: 01-13-2018 End: 04-04-2018 take 1 tablet by mouth once calcium carbonate 650 mg calcium (1,625 mg) tablet Discontinued 650 MG PO ONCE January 13, 2018 12:00am April 04, 2018 9:34am Calcium Carbonate 650 mg calcium (1,625 mg) tablet (3 sources) Start: 01-13-2018 End: 04-04-2018 take 1 tablet by mouth once Calcium Carbonate 650 mg calcium (1,625 mg) tablet Discontinued 650 mg PO ONCE January 13, 2018 12:00am April 04, 2018 9:34am ciprofloxacin 500 mg oral tablet (10 sources) Quinolone Antimicrobial Start: 09-06-2022 End: 09-13-2022 take 1 tablet by mouth twice daily Ciprofloxacin Hcl (Cipro) 500 mg tablet Discontinued 500 mg PO TWICE A DAY 14 7 0 September 06, 2022 1:00am September 12, 2022 1:00am September 13, 2022 1:05am docusate sodium 100 mg oral capsule (20 sources) Start: 09-17-2023 End: 11-03-2024 take 1 capsule by mouth once daily Docusate Sodium (Colace) 100 mg capsule Discontinued 100 mg PO DAILY September 17, 2023 1:00am November 03, 2024 2:38pm Start: 07-25-2020 End: 03-17-2023 take 1 capsule by mouth once daily Docusate Sodium (Colace) 100 mg capsule Discontinued 100 mg PO DAILY July 25, 2020 1:00am March 17, 2023 11:41am Start: 11-03-2013 End: 06-09-2019 take 1 capsule by mouth twice daily Docusate Sodium 100 mg capsule Discontinued 100 mg PO TWICE A DAY January 13, 2018 12:00am June 09, 2019 2:14pm estrogens, conjugated (long-term) 0.625 mg/ml vaginal cream (20 sources) Estrogen Start: 02-11-2025 End: 02-11-2025 Conjugated Estrogens 0.625 mg/gram cream Discontinued 1 NMA VAGINAL .COMPLEX 30 4 February 11, 2025 1:01pm February 11, 2025 1:02pm apply fingertip amount, 1-3x weekly Start: 09-11-2022 End: 03-17-2023 Conjugated Estrogens 0.625 m g/gram cream Discontinued 0.625 mg VAGINAL ONCE September 11, 2022 1:00am March 17, 2023 11:41am Start: 06-09-2019 End: 07-25-2020 Conjugated Estrogens (Premar in) 0.625 mg/gram cream Discontinued 0 .Route .COMPLEX 30 2 July 25, 2020 2:57pm July 25, 2020 3:38pm Peasized amount at vaginal opening every other night X 4 weeks then twice a week Start: 01-13-2018 End: 04-04-2018 Conjugated Estrogens 0.625 m g/gram cream Discontinued 1 NMA VAGINAL .COMPLEX 30 January 13, 2018 12:00am April 04, 2018 9:34am apply fingertip amount or 1-2g VAGINAL every night x 2 weeks then 1-3x weekly for maintenance Start: 01-13-2018 End: 04-04-2018 Conjugated Estrogens Discont inued 1 APPLIC VAGINAL .COMPLEX 30 January 13, 2018 12:00am April 04, 2018 9:34am apply fingertip amount or 1-2g VAGINAL every night x 2 weeks then 1-3x weekly for maintenance fluticasone propionate 0.05 mg/actuat metered dose nasal spray (10 sources) Corticosteroid Start: 10-19-2019 End: 09-05-2021 take 50 ug nasal route once daily Fluticasone Propionate (Flonase Allergy Relief) 50 mcg/actuation spray,suspension Discontinued 1 NMA INTRANASAL DAILY October 19, 2019 1:00am September 05, 2021 3:34pm administer into each nostril Start: 10-19-2019 End: 09-05-2021 take 1 spray(s) nasal route once daily Fluticasone Propionate (Flonase Allergy Relief) 50 mcg/actuation spray,suspension Discontinued 1 SPRAY INTRANASAL DAILY October 19, 2019 1:00am September 05, 2021 3:34pm administer into each nostril Grape Seed Extract (10 sources) Start: 01-13-2018 End: 04-04-2018 take 1 capsule by mouth once Grape Seed Extract 50 mg capsule Discontinued 50 mg PO ONCE January 13, 2018 12:00am April 04, 2018 9:34am Start: 01-13-2018 End: 04-04-2018 take 1 capsule by mouth once grape seed extract 50 mg capsule Discontinued 50 MG PO ONCE January 13, 2018 12:00am April 04, 2018 9:34am Start: 01-13-2018 End: 04-04-2018 take 1 capsule by mouth once grape seed extract 50 mg capsule Discontinued 50 MG PO ONCE January 12, 2018 11:00pm April 04, 2018 8:34am Lactobacillus Combination No.9 (Adult 50 Plus Probiotic) 4 billion cell capsule (10 sources) Start: 07-25-2020 End: 09-05-2021 take 4 capsules by mouth once daily Lactobacillus Combination No.9 (Adult 50 Plus Probiotic) 4 billion cell capsule Discontinued 4000 NMA PO DAILY July 25, 2020 1:00am September 05, 2021 3:34pm administer with a meal Start: 07-25-2020 End: 09-05-2021 take 4 capsules by mouth once daily Lactobacillus Combination No.9 (Adult 50 Plus Probiotic) 4 billion cell capsule Discontinued 4000 MMU CELLS PO DAILY July 25, 2020 1:00am September 05, 2021 3:34pm administer with a meal Start: 07-25-2020 End: 09-05-2021 take 4 capsules by mouth once daily Lactobacillus Combination No.9 (Adult 50 Plus Probiotic) 4 billion cell capsule Discontinued 4000 MMU CELLS PO DAILY July 25, 2020 12:00am September 05, 2021 2:34pm administer with a meal melatonin 10 mg oral capsule (20 sources) Start: 09-17-2023 End: 11-03-2024 take 1 capsule by mouth at bedtime as needed Melatonin 10 mg capsule Discontinued 10 mg PO BEDTIME as needed September 17, 2023 1:00am November 03, 2024 2:38pm Start: 07-25-2020 End: 09-05-2021 take 1 capsule by mouth at bedtime as needed Melatonin 10 mg capsule Discontinued 10 mg PO BEDTIME as needed July 25, 2020 1:00am September 05, 2021 3:34pm Start: 01-13-2018 End: 04-04-2018 take 1 capsule by mouth at bedtime as needed Melatonin 10 mg capsule Discontinued 10 mg PO BEDTIME as needed January 13, 2018 12:00am April 04, 2018 9:35am Start: 11-03-2013 take 1 tablet by chris th once daily at bedtime Melatonin 5 mg tab Take 1 tablet by mouth daily at bedtime. 0 11/03/2013 Active multivitamin,qu-vzzc-wlsjqkm s (7 sources) Start: 07-25-2020 End: 03-17-2023 take 1 tablet by mouth once daily multivitamin,gk-czkq-hxufdjfl Discontinued 1 TABLET PO DAILY July 25, 2020 12:00am March 17, 2023 10:40am Start: 07-25-2020 End: 03-17-2023 take 1 tablet by mouth once daily multivitamin,ec-oxht-yiebjasf Discontinu ed 1 TABLET PO DAILY July 25, 2020 1:00am March 17, 2023 11:40am Start: 07-25-2020 take 1 tablet by chris th once daily multivitamin,da-rqow-jxzsuscr Active 1 T ABLET PO DAILY July 25, 2020 12:00am Multivitamin,Rd-Zixo-Fahxmtr s (Complete Multivitamin) tablet (3 sources) Start: 07-25-2020 End: 03-17-2023 Multivitamin,St-Ghxj-Ybaixep s (Complete Multivitamin) tablet Discontinued 1 {tbl} PO DAILY July 25, 2020 1:00am March 17, 2023 11:40am [place]-3 Fatty Acids (Fish Oi l Concentrate) 1,000 mg capsule (10 sources) Start: 07-25-2020 End: 03-17-2023 take 1 capsule by mouth once daily [place]-3 Fatty Acids (Fish Oil Concentrate) 1,000 mg capsule Discontinued 1000 mg PO DAILY July 25, 2020 1:00am Denia 17th, 2023 11:40am Start: 07-25-2020 End: 03-17-2023 take 1 capsule by mouth once daily [place]-3 Fatty Acids (Fish Oil Concentrate) 1,000 mg capsule Discontinued 1000 MG PO DAILY July 25, 2020 12:00am March 17, 2023 10:40am Start: 07-25-2020 End: 03-17-2023 take 1 capsule by mouth once daily [place]-3 Fatty Acids (Fish Oil Concentrate) 1,000 mg capsule Discontinued 1000 MG PO DAILY July 25, 2020 1:00am March 17, 2023 11:40am Start: 07-25-2020 take 1 capsule by mo [facility] once daily [place]-3 Fatty Acids (Fish Oil Concentrate) 1,000 mg capsule Active 1000 MG PO DAILY July 25, 2020 12:00am prasterone 6.5 mg vaginal insert (10 sources) Start: 09-05-2021 End: 09-11-2022 Prasterone (Dhea) (Intrarosa ) 6.5 mg insert Discontinued 1 NMA VAGINAL BEDTIME 28 08September 05, 2021 1:00am September 11, 2022 3:54pm after 2 weeks (and if symptoms improve), may space dosing to every other day. Start: 09-05-2021 End: 09-11-2022 Prasterone (Dhea) (Intrarosa ) 6.5 mg insert Discontinued 1 INSERT VAGINAL BEDTIME September 05, 2021 1:00am September 11, 2022 3:54pm after 2 weeks (and if symptoms improve), may space dosing to every other day. 24 hr venlafaxine 75 mg extended release oral capsule (20 sources) Serotonin and Norepinephrine Reuptake Inhibitor Start: 08-15-2020 End: 11-24-2024 take 1 capsule by mouth once daily Venlafaxine 75 mg capsule,extended release 24hr Discontinued 75 mg PO daily 90 4 November 18, 2024 12:40pm November 24, 2024 8:55am Start: 01-13-2018 End: 09-05-2021 take 1 capsule by mouth every twenty-four hours at bedtime Venlafaxine (Effexor Xr) 75 mg capsule,extended release 24hr Discontinued 75 mg PO AT BEDTIME 90 4 August 14, 2020 10:28am September 05, 2021 3:34pm Start: 11-27-2016 End: 10-30-2021 take 1 capsule by mouth once daily Venlafaxine (Effexor Xr) 37.5 mg capsule,extended release 24hr Discontinued 37.5 mg PO DAILY 30 08September 05, 2021 1:00am October 30, 2021 4:41pm Vitamin B Complex (Super B-5 0 Complex) capsule (10 sources) Start: 01-13-2018 End: 04-04-2018 Vitamin B Complex (Super B-5 0 Complex) capsule Discontinued 1 NMA PO daily January 13, 2018 12:00am April 04, 2018 9:35am Start: 01-13-2018 End: 04-04-2018 take 1 capsule by mouth once daily Vitamin B Complex (Super B-50 Complex) capsule Discontinued 1 CAP PO daily January 13, 2018 12:00am April 04, 2018 9:35am Start: 01-13-2018 End: 04-04-2018 take 1 capsule by mouth once daily Vitamin B Complex (Super B-50 Complex) capsule Discontinued 1 CAP PO daily January 12, 2018 11:00pm April 04, 2018 8:35am Vitamin B Complex tablet (3 sources) Start: 09-17-2023 End: 11-03-2024 Vitamin B Complex tablet Discontinued 1 {tbl} PO DAILY September 17, 2023 1:00am November 03, 2024 2:38pm vitamin k 0.1 mg oral tablet (7 sources) Start: 09-17-2023 End: 11-03-2024 Phytonadione (Vitamin K1) 10 0 mcg tablet Discontinued 100 ug PO DAILY September 17, 2023 1:00am November 03, 2024 2:38pm Problems Active Problems Problem Classification Problem Date Documented Da te Episodic/Chronic Abdominal pain (7 sources) Left lower quadrant pain; Translations: [Left lower quadrant pain] 09-24-2023 Episodic Adjustment disorders (2 sources) Adjustment disorder with mixed anxiety and depressed mood; Translations: [Adjustment disorder with mixed anxiety and depressed mood] Onset: 08-28-2013 08-28-2013 Chronic Anxiety disorders (12 sources) Mixed anxiety and depressive disorder; Translations: [Other specified anxiety disorders] Onset: 05-25-2013 Resolved: 08-28-2013 07-25-2020 Chronic Comment on above: counseling PRN. effe xor Essential hypertension (11 sources) Hypertensive disorder; Translations: [Essential (primary) hypertension] Onset: 04-06-2025 01-13-2018 Chronic Mood disorders (2 sources) Premenstrual dysphoric disorder; Translations: [Premenstrual dysphoric disorder] Onset: 06-08-2013 06-08-2013 Chronic Nausea and vomiting (9 sources) Nausea; Translations: [Nausea] 03-17-2023 Episodic Other upper respiratory disease (10 sources) Seasonal allergy; Translations: [Other seasonal allergic rhinitis] 01-13-2018 Chronic Prolapse of female genital organs (6 sources) Midline cystocele; Translations: [Cystocele, midline] Onset: 07-04-2010 Resolved: 11-03-2013 11-03-2013 Chronic Spondylosis; intervertebral disc disorders; other back problems (1 source) Acute low back pain; Translations: [Acute midline low back pain without sciatica] 06-13-2024 Episodic Viral infection (10 sources) Disease caused by 2019-nCoV; Translations: [COVID-19] 04-18-2021 Episodic Past or Other Problems Problem Classification Problem Date Documented Da te Episodic/Chronic Abdominal hernia (2 sources) Vaginal enterocele; Translations: [Unspecified abdominal hernia without obstruction or gangrene] Onset: 07-04-2010 Resolved: 11-03-2013 11-03-2013 Episodic Anal and rectal conditions (2 sources) Anal fissure; Translations: [Anal fissure, unspecified] Onset: 07-14-2013 07-14-2013 Episodic Genitourinary symptoms and ill-defined conditions (3 sources) Urgent desire to urinate; Translations: [Urgency of urination] Onset: 05-28-2011 05-28-2011 Episodic Other gastrointestinal disorders (2 sources) Constipation; Translations: [Constipation, unspecified] Onset: 06-22-2013 06-22-2013 Episodic Other non-traumatic joint disorders (1 source) Pain in unspecified knee; Translations: [Pain in unspecified knee] Onset: 05-24-2024 Episodic Other screening for suspected conditions (not mental disorders or infectious disease) (1 source) Encounter for screening mammogram for malignant neoplasm of breast; Translations: [Encounter for screening mammogram for malignant neoplasm of breast] Onset: 01-06-2025 Episodic Urinary tract infections (1 source) Urinary tract infection, site not specified; Translations: [Urinary tract infection, site not specified] Onset: 11-22-2024 Episodic Results Test Name Value Interpretation Reference Range Facility Absolute lymphocyte countOrd ered By: Akash Henderson on 03-29-2025 Lymphocytes Auto (Unsp spec) [#/Vol] 1.63 10*3/uL 0.83-4.51 [facility] Absolute neutrophil countOrd ered By: Akash Henderson on 03-29-2025 Neutrophils (Bld) [#/Vol] 3.2 10*3/uL 2.0-7.7 [facility] Anion gap in Serum or Plasma Ordered By: Akash Andrewske on 03-29-2025 Anion gap [Moles/Vol] 11 mmol/L 5-15 [facility] Automated lymphocyte count a s percentage of total leukocytesOrdered By: Akash Henderson on 03-29-2025 Lymphocytes/100 WBC Auto (Unsp spec) 29.4 % 19- [facility] BUN/creatinine ratioOrdered By: Akash Andrewske on 03-29-2025 Urea nitrogen/Creatinine [Mass ratio] 22.9 mg/mg High 10- [facility] Basophil percentageOrdered B y: Akash Henderson on 03-29-2025 Basophils/100 WBC (Bld) 0.5 % 0-1 [facility] Bilirubin, totalOrdered By: Akash Henderson on 03-29-2025 Bilirubin [Mass/Vol] 0.32 mg/dL 0.00-1.30 [facility] CBC W/Diff, Automatedon 03-02 Absolute Lymph 1.63 X10 3/uL Normal 0.83-4.51 [facility] Comment on above: Order Comment: Order Date: 11/02/24 Order Info: 0184-1 - CBCD Performed By: #### L 100.0100, L500.4050, [id number] #### [facility] [place], [address] Absolute Neut 3.2 X10 3/uL Normal 2.0-7.7 [facility] Comment on above: Order Comment: Order Date: 11/02/24 Order Info: 0184-1 - CBCD Performed By: #### L 100.0100, L500.4050, [id number] #### [facility] [address] [place], [address] Basophils/100 WBC (Bld) 0.5 % Normal 0-1 [facility] Comment on above: Order Comment: Order Date: 11/02/24 Order Info: 0184-1 - CBCD Performed By: #### L 100.0100, [id number], [id number] #### [facility] [address] [place], [address] Eosinophils/100 WBC (Bld) 3.2 % Normal 0-5 [facility] Comment on above: Order Comment: Order Date: 11/02/24 Order Info: [id number] - CBCD Performed By: #### L 100.0100, [id number], [id number] #### [facility] [address] [place], [address] Erythrocyte distribution width (RBC) [Ratio] 12.4 % Normal 11.6-14.6 [facility] Comment on above: Order Comment: Order Date: 11/02/24 Order Info: [id number] - CBCD Performed By: #### L 100.0100, L500.4050, L500.4100 #### [facility] [address] [place], [address] Hematocrit (Bld) [Volume fraction] 42.0 % Normal 37-47 [facility] Comment on above: Order Comment: Order Date: 11/02/24 Order Info: 0184-1 - CBCD Performed By: #### L 100.0100, L500.4050, L500.4100 #### [facility] [address] [place], [address] Hemoglobin (Bld) [Mass/Vol] 13.9 g/dL Normal 12.0-15. 0 [facility] Comment on above: Order Comment: Order Date: 11/02/24 Order Info: 0184-1 - CBCD Performed By: #### L 100.0100, L500.4050, L500.4100 #### [facility] [address] [place], [address] IG% 0.200 Normal 0.0-0.9 [facility] Comment on above: Order Comment: Order Date: 11/02/24 Order Info: [id number] - CBCD Result Comment: IG% - Immature Granulocytes (promyelocytes, myelocytes and metamyelocytes) > 1% indicates that a LEFT SHIFT is Present. Performed By: #### L 100.0100, L500.4050, L500.4100 #### [facility] [address] [place], [address] Lymphocytes/100 WBC (Bld) 29.4 % Normal 19-41 [facility] Comment on above: Order Comment: Order Date: 11/02/24 Order Info: [id number]- - CBCD Performed By: #### L 100.0100, L500.4050, L500.4100 #### [facility] [address] [place], [address] MCH (RBC) [Entitic mass] 29.0 pg Normal 27.0-32.0 [facility] Comment on above: Order Comment: Order Date: 11/02/24 Order Info: [id number] - CBCD Performed By: #### L 100.0100, L500.4050, L500.4100 #### [facility] [address] [place], [address] MCHC (RBC) [Mass/Vol] 33.1 g/dL Normal 32-36 [facility] Comment on above: Order Comment: Order Date: 11/02/24 Order Info: 0184-1 - CBCD Performed By: #### L 100.0100, L500.4050, L500.4100 #### [facility] [address] [place], [address] MCV (RBC) [Entitic vol] 87.5 fL Normal 81-99 [facility] Comment on above: Order Comment: Order Date: 11/02/24 Order Info: 0184-1 - CBCD Performed By: #### L 100.0100, L500.4050, L500.4100 #### [facility] [address] [place], [address] Monocytes/100 WBC (Bld) 9.4 % Normal 0-10 [facility] Comment on above: Order Comment: Order Date: 11/02/24 Order Info: 0184-1 - CBCD Performed By: #### L 100.0100, L500.4050, L500.4100 #### [facility] [address] [place], [address] Neutrophils/100 WBC (Bld) 57.3 % Normal 47-70 [facility] Comment on above: Order Comment: Order Date: 11/02/24 Order Info: 0184-1 - CBCD Performed By: #### L 100.0100, L500.4050, L500.4100 #### [facility] [address] [place], [address] Nucleated RBC (Bld) [#/Vol] 0 10*3/uL Normal 0-5 [facility] Comment on above: Order Comment: Order Date: 11/02/24 Order Info: 0184-1 - CBCD Performed By: #### L 100.0100, L500.4050, L500.4100 #### [facility] [address] [place], [address] Platelet mean volume (Bld) [Entitic vol] 10.2 fL Normal 6.2-12.0 [facility] Comment on above: Order Comment: Order Date: 11/02/24 Order Info: 0184-1 - CBCD Performed By: #### L 100.0100, L500.4050, L500.4100 #### [facility] [address] [place], [address] Platelets (Bld) [#/Vol] 249 10*3/uL Normal 150-450 [facility] Comment on above: Order Comment: Order Date: 11/02/24 Order Info: 0184-1 - CBCD Performed By: #### L 100.0100, L500.4050, L500.4100 #### [facility] [address] [place], [address] RBC (Bld) [#/Vol] 4.80 10*6/uL Normal 4.2-5.4 [facility] Comment on above: Order Comment: Order Date: 11/02/24 Order Info: 0184-1 - CBCD Performed By: #### L 100.0100, L500.4050, L500.4100 #### [facility] [address] [place], [address] RDW SD 39.8 fl Normal 35.1-43.9 [facility] Comment on above: Order Comment: Order Date: 11/02/24 Order Info: 0184-1 - CBCD Performed By: #### L 100.0100, L500.4050, L500.4100 #### [facility] [address] [place], [address] WBC (Bld) [#/Vol] 5.6 10*3/uL Normal 4.4-11.0 [facility] Comment on above: Order Comment: Order Date: 11/02/24 Order Info: 0184-1 - CBCD Performed By: #### L 100.0100, L500.4050, L500.4100 #### [facility] [address] [place], [address] Calculated very low density lipoprotein (VLDL) cholesterol measurementOrdered By: Akash Henderson on 03-29-2025 Calculated very low density lipoprotein (VLDL) cholesterol measurement 10 mg/dL 5-40 [facility] Carbon dioxide, total [Moles /volume] in Central venous bloodOrdered By: Akash Henderson on 03-29-2025 CO2 [Moles/Vol] 22.6 mmol/L 21.0-32.0 [facility] Chloride assayOrdered By: Silvia Henderson on 03-29-2025 Chloride [Moles/Vol] 105 mmol/L 98-108 [facility] Comprehensive Metabolic Prof ilon 03-29-2025 Albumin [Mass/Vol] 4.4 g/dL Normal 3.5-5.0 [facility] Comment on above: Order Comment: Order Date: 11/02/24 Order Info: [id number] - CMP Order Info: [id number] - LIPID Performed By: #### L 100.0100, L500.4050, L500.4100 #### [facility] [address] [place], [address] Albumin/Globulin [Mass ratio] 1.6 {ratio} Normal 0.9-2.4 [facility] Comment on above: Order Comment: Order Date: 11/02/24 Order Info: [id number] - CMP Order Info: [id number] - LIPID Performed By: #### L 100.0100, L500.4050, L500.4100 #### [facility] [address] [place], [address] ALK PHOS 71 U/L Normal 35-104 [facility] Comment on above: Order Comment: Order Date: 11/02/24 Order Info: [id number] - CMP Order Info: [id number] - LIPID Performed By: #### L 100.0100, L500.4050, L500.4100 #### [facility] [address] [place], [address] ALT [Catalytic activity/Vol] 22 U/L Normal <=34 [facility] Comment on above: Order Comment: Order Date: 11/02/24 Order Info: [id number] - CMP Order Info: [id number] - LIPID Performed By: #### L 100.0100, L500.4050, L500.4100 #### [facility] [address] [place], [address] AST [Catalytic activity/Vol] 21 U/L Normal <=31 [facility] Comment on above: Order Comment: Order Date: 11/02/24 Order Info: [id number] - CMP Order Info: [id number] - LIPID Performed By: #### L 100.0100, L500.4050, L500.4100 #### [facility] [address] [place], [address] Bilirubin [Mass/Vol] 0.32 mg/dL Normal 0.00-1.30 [facility] Comment on above: Order Comment: Order Date: 11/02/24 Order Info: [id number] - CMP Order Info: [id number] - LIPID Performed By: #### L 100.0100, L500.4050, L500.4100 #### [facility] [address] [place], [address] BUN/CRE 22.9 RATIO High 10-20 [facility] Comment on above: Order Comment: Order Date: 11/02/24 Order Info: [id number] - CMP Order Info: [id number] - LIPID Performed By: #### L 100.0100, L500.4050, L500.4100 #### [facility] [address] [place], [address] Calcium [Mass/Vol] 9.8 mg/dL Normal 7.6-11.0 [facility] Comment on above: Order Comment: Order Date: 11/02/24 Order Info: [id number] - CMP Order Info: [id number] - LIPID Performed By: #### L 100.0100, L500.4050, L500.4100 #### [facility] [address] [place], [address] Chloride [Moles/Vol] 105 mmol/L Normal 98-108 [facility] Comment on above: Order Comment: Order Date: 11/02/24 Order Info: [id number] - CMP Order Info: [id number] - LIPID Performed By: #### L 100.0100, L500.4050, L500.4100 #### [facility] [address] [place], [address] CO2 [Moles/Vol] 22.6 mmol/L Normal 21.0-32.0 [facility] Comment on above: Order Comment: Order Date: 11/02/24 Order Info: [id number] - CMP Order Info: [id number] - LIPID Performed By: #### L 100.0100, L500.4050, L500.4100 #### [facility] [address] [place], [address] Creatinine [Mass/Vol] 0.75 mg/dL Normal 0.70-1.20 [facility] Comment on above: Order Comment: Order Date: 11/02/24 Order Info: [id number] - CMP Order Info: [id number] - LIPID Performed By: #### L 100.0100, L500.4050, L500.4100 #### [facility] [address] [place], [address] GAP 11 Normal 5-15 [facility] Comment on above: Order Comment: Order Date: 11/02/24 Order Info: [id number] - CMP Order Info: [id number] - LIPID Performed By: #### L 100.0100, L500.4050, L500.4100 #### [facility] [address] [place], [address] GFR/1.73 sq M.predicted among non-blacks MDRD (S/P/Bld) [Vol rate/Area] 92 mL/min/{1.73_m2} Normal >60 [facility] Comment on above: Order Comment: Order Date: 11/02/24 Order Info: [id number] - CMP Order Info: [id number] - LIPID Result Comment: mL/m in/1.73m2 CKD-EPI Creatinine Equation (2020) Performed By: #### L 100.0100, L500.4050, L500.4100 #### [facility] [address] [place], [address] Globulin (S) [Mass/Vol] 2.8 g/dL Normal 2.2-4.2 [facility] Comment on above: Order Comment: Order Date: 11/02/24 Order Info: [id number] - CMP Order Info: [id number] - LIPID Performed By: #### L 100.0100, L500.4050, L500.4100 #### [facility] [address] [place], [address] Glucose [Mass/Vol] 96 mg/dL Normal 70-99 [facility] Comment on above: Order Comment: Order Date: 11/02/24 Order Info: [id number]- - CMP Order Info: [id number] - LIPID Performed By: #### L 100.0100, L500.4050, L500.4100 #### [facility] [address] [place], [address] Potassium [Moles/Vol] 4.3 mmol/L Normal 3.3-5.1 [facility] Comment on above: Order Comment: Order Date: 11/02/24 Order Info: [id number]- - CMP Order Info: [id number] - LIPID Performed By: #### L 100.0100, L500.4050, L500.4100 #### [facility] [address] [place], [address] Sodium [Moles/Vol] 138 mmol/L Normal 133-145 [facility] Comment on above: Order Comment: Order Date: 11/02/24 Order Info: [id number] - CMP Order Info: [id number] - LIPID Performed By: #### L 100.0100, L500.4050, L500.4100 #### [facility] [address] [place], [address] T PROT 7.2 g/dL Normal 5.9-8.4 [facility] Comment on above: Order Comment: Order Date: 11/02/24 Order Info: [id number] - CMP Order Info: [id number] - LIPID Performed By: #### L 100.0100, L500.4050, L500.4100 #### [facility] [address] [place], [place], [address] Urea nitrogen [Mass/Vol] 17 mg/dL Normal 4-19 [facility] Comment on above: Order Comment: Order Date: 11/02/24 Order Info: [id number] - CMP Order Info: [id number] - LIPID Performed By: #### L 100.0100, L500.4050, L500.4100 #### [facility] [address] [place], [place], [address] Eosinophil percentageOrdered By: Akash Henderson on 03-29-2025 Eosinophils/100 WBC (Bld) 3.2 % 0-5 [facility] Erythrocyte distribution wid th ratioOrdered By: Akash Henderson on 03-29-2025 Erythrocyte distribution width (RBC) [Ratio] 12.4 % 11.6-14.6 [facility] Erythrocyte distribution wid th standard deviationOrdered By: Akash Henderson on 03-29-2025 Erythrocyte distribution width (RBC) [Ratio] 39.8 fl 35.1-43.9 [facility] Glomerular filtration rate ( GFR) estimation/1.73 sq m using serum, plasma, or whole bOrdered By: Akash Henderson on 03-29-2025 GFR/1.73 sq M.predicted among non-blacks MDRD (S/P/Bld) [Vol rate/Area] 92 mL/min/{1.73_m2} >60 [facility] Comment on above: mL/min/1.73m2 CKD-EP I Creatinine Equation (2020) Hematocrit Auto (Bld) [Volum e fraction]Ordered By: Akash Henderson on 03-29-2025 Hematocrit (Bld) [Volume fraction] 42.0 % 37-47 [facility] Hemoglobin measurementOrdere d By: kAash Henderson on 03-29-2025 Hemoglobin (Bld) [Mass/Vol] 13.9 g/dL 12.0-15. 0 [facility] Immature granulocytes/100 WB C Auto (Bld)Ordered By: Akash Henderson on 03-29-2025 Immature granulocytes/100 WBC (Bld) 0.200 % 0.0-0.9 [facility] Comment on above: IG% - Immature Granu locytes (promyelocytes, myelocytes and metamyelocytes) > 1% indicates that a LEFT SHIFT is Present. LDL calc ser/plasOrdered By: Akash Henderson on 03-29-2025 Cholesterol in LDL [Mass/Vol] 179 mg/dL [facility] Comment on above: Kdceuiwqkc=553-997 m g/dL & Higher Eorp=333 mg/dL or greaterFriedwald Equation for LDL-C Laboratory - Chemistry and C hemistry - challengeOrdered By: Akash Beatriz on 03-29-2025 AST [Catalytic activity/Vol] 21 U/L <32 [facility] Lipid Profileon 03-29-2025 CHOL:HDL 3.32 Normal [facility] Comment on above: Order Comment: Order Date: 11/02/24 Order Info: [id number] - CMP Order Info: [id number] - LIPID Performed By: #### L 100.0100, L500.4050, L500.4100 #### [facility] [address] [place], [place], [id number] Cholesterol [Mass/Vol] 271 mg/dL High <=200 [facility] Comment on above: Order Comment: Order Date: 11/02/24 Order Info: [id number] - CMP Order Info: [id number] - LIPID Result Comment: Chol esterol level, Desirable <200 mg/dL Borderline high cholesterol 200-239 mg/dL High cholesterol >=240 mg/dL Recommendations of the NCEP Adult Treatment Panel for the following risk-cutoff thresholds for the [place] population. Performed By: #### L 100.0100, L500.4050, L500.4100 #### [facility] [address] [place], [address] Cholesterol in HDL [Mass/Vol] 82 mg/dL Normal [facility] Comment on above: Order Comment: Order Date: 11/02/24 Order Info: [id number] - CMP Order Info: [id number] - LIPID Result Comment: Eli onal Cholesterol Education Program (NCEP) guidelines: <40 mg/dL: Low HDL-cholesterol (major risk factor for CHD) >= 60 mg/dL: High HDL-cholesterol (negative risk factor for CHD) HDL-cholesterol is affected by a number of factors, e.g. smoking, exercise, hormones, sex and age. Performed By: #### L 100.0100, L500.4050, L500.4100 #### [facility] [address] [place], [address] Cholesterol in LDL [Mass/Vol] 179 mg/dL Normal [facility] Comment on above: Order Comment: Order Date: 11/02/24 Order Info: [id number] - CMP Order Info: [id number] - LIPID Result Comment: Bord ykihhq=405-492 mg/dL Higher Ggoh=844 mg/dL or greater Friedwald Equation for LDL-C Performed By: #### L 100.0100, L500.4050, L500.4100 #### [facility] [address] [place], [address] Cholesterol in VLDL [Mass/Vol] 10 mg/dL Normal 5-40 [facility] Comment on above: Order Comment: Order Date: 11/02/24 Order Info: [id number] - CMP Order Info: [id number] - LIPID Performed By: #### L 100.0100, L500.4050, L500.4100 #### [facility] [address] [place], [address] Triglyceride [Mass/Vol] 49 mg/dL Normal [facility] Comment on above: Order Comment: Order Date: 11/02/24 Order Info: [id number] - CMP Order Info: [id number] - LIPID Result Comment: The drugs N-Acetylcysteine and Metamizole may falsely depress this assay. Normal range: <150 mg/dL Borderline High: 150-199 mg/dL High: 200-499 mg/dL Very High: >500 mg/dL Performed By: #### L 100.0100, L500.4050, L500.4100 #### [facility] [address] [place], [place], [id number] MCV (mean corpuscular volume ) determinationOrdered By: Akash Henderson on 03-29-2025 MCV (RBC) [Entitic vol] 87.5 fL 81-99 [facility] Mean corpuscular hemoglobin (MCH) determinationOrdered By: Akash Henderson on 03-29-2025 MCH (RBC) [Entitic mass] 29.0 pg 27.0-32.0 [facility] Mean corpuscular hemoglobin concentration (MCHC) determinationOrdered By: Akash Henderson on 03-29-2025 MCHC (RBC) [Mass/Vol] 33.1 g/dL 32-36 [facility] Mean platelet volume determi nationOrdered By: Akash Henderson on 03-29-2025 Platelet mean volume (Bld) [Entitic vol] 10.2 fL 6.2-12.0 [facility] Monocyte percentageOrdered B y: Akash Henderson on 03-29-2025 Monocytes/100 WBC (Bld) 9.4 % 0-10 [facility] Neutrophil percentageOrdered By: Akash Henderson on 03-29-2025 Neutrophils/100 WBC (Bld) 57.3 % 47-70 [facility] Nucleated red blood cell per centageOrdered By: Akash Henderson on 03-29-2025 Nucleated RBC/100 WBC (Bld) [Ratio] 0 % 0-5 [facility] Platelet countOrdered By: Silvia Henderson on 03-29-2025 Platelets (Bld) [#/Vol] 249 10*3/uL 150-450 [facility] Potassium measurement (mass/ volume)Ordered By: Akash Henderson on 03-29-2025 Potassium (Unsp spec) [Mass/Vol] 4.3 mmol/L 3.3-5.1 [facility] RBC Auto (Bld) [#/Vol]Ordere d By: Akash Henderson on 03-29-2025 RBC (Bld) [#/Vol] 4.80 10*6/uL 4.2-5.4 [facility] Screening total cholesterol/ high density lipoprotein (HDL) cholesterol ratioOrdered By: Akash Henderson on 03-29-2025 Cholesterol.total/Cholester ol in HDL [Mass ratio] 3.32 {ratio} [facility] Serum creatinine measurement (mass/volume)Ordered By: Akash Henderson on 03-29-2025 Creatinine [Mass/Vol] 0.75 mg/dL 0.70-1.20 [facility] Serum globulin measurementOr dered By: Akash Henderson on 03-29-2025 Globulin (S) [Mass/Vol] 2.8 g/dL 2.2-4.2 [facility] Serum glucose measurement (m ass/volume)Ordered By: Akash Henderson on 03-29-2025 Glucose [Mass/Vol] 96 mg/dL 70-99 [facility] Serum or plasma alanine ta otransferase (ALT) measurementOrdered By: Akash Henderson on 03-29-2025 ALT [Catalytic activity/Vol] 22 U/L <35 [facility] Serum or plasma albumin daylin urement (mass/volume)Ordered By: Akash Henderson on 03-29-2025 Albumin [Mass/Vol] 4.4 g/dL 3.5-5.0 [facility] Serum or plasma albumin/glob ulin mass ratioOrdered By: Akash Henderson on 03-29-2025 Albumin/Globulin [Mass ratio] 1.6 {ratio} 0.9-2.4 [facility] Serum or plasma alkaline ashley sphatase measurementOrdered By: Akash Henderson on 03-29-2025 ALP [Catalytic activity/Vol] 71 U/L 35-104 [facility] Serum or plasma calcium daylin urement (mass/volume)Ordered By: Akash Henderson on 03-29-2025 Calcium [Mass/Vol] 9.8 mg/dL 7.6-11.0 [facility] Serum or plasma cholesterol in HDL measurement (mass/volume)Ordered By: Akash Henderson on 03-29-2025 Cholesterol in HDL [Mass/Vol] 82 mg/dL >40 [facility] Comment on above: National Cholesterol Education Program (NCEP) guidelines:<40 mg/dL: Low HDL-cholesterol (major risk factor for CHD)>= 60 mg/dL: High HDL-cholesterol (negative risk factor for CHD)HDL-cholesterol is affected by a number of factors, e.g. smoking, exercise, hormones, sex and age. Serum or plasma cholesterol measurement (mass/volume)Ordered By: Akash Henderson on 03-29-2025 Cholesterol [Mass/Vol] 271 mg/dL High <201 [facility] Comment on above: Cholesterol level, D esirable <200 mg/dLBorderline high cholesterol 200-239 mg/dLHigh cholesterol >=240 mg/dLRecommendations of the NCEP Adult Treatment Panel for the following risk-cutoff thresholds for the [place] population. Serum or plasma urea nitroge n measurement (mass/volume)Ordered By: Akash Henderson on 03-29-2025 Urea nitrogen [Mass/Vol] 17 mg/dL 4-19 [facility] Sodium levelOrdered By: Joseph Henderson on 03-29-2025 Sodium [Moles/Vol] 138 mmol/L 133-145 [facility] Total proteinOrdered By: Teresa Henderson on 03-29-2025 Protein [Mass/Vol] 7.2 g/dL 5.9-8.4 [facility] Triglycerides measurementOrd ered By: Akash Henderson on 03-29-2025 Triglyceride [Mass/Vol] 49 mg/dL <199 [facility] Comment on above: The drugs N-Acetylcy steine and Metamizole may falsely depress this assay. Normal range: <150 mg/dLBorderline High: 150-199 mg/dLHigh: 200-499 mg/dLVery High: >500 mg/dL White blood cell (WBC) count Ordered By: Akash Henderson on 03-29-2025 WBC (Bld) [#/Vol] 5.6 10*3/uL 4.4-11.0 [facility] Breast imaging reportOrdered By: Alondra Lew on 12-29-2024 Study report [facility] Imaging Services [address] [place], [place] [address] SCRN MAMM (CAD)W/ABHINAV ESPARZA MR#: [id number] Acct: [id number] Name: CECY MELCHOR Rep #: [id number] : 1965 F 59 From: Nicolle Lew MD PCP: Dr. Akash Henderson MD Status: REG CL I Study:SCRN MAMM (CAD)W/ABHINAV BILAT Date of Exa m: 12/28/24 Exam# [id number] Ordering Dr: Nona Kay DO EXAM: SCRN MAMM (CAD)W/ABHINAV BILAT 12/28/2024 CLINICAL HISTORY: F, Age 59 y/o , SCREENING MAMMOGRAM TECHNIQUE: Bilateral screening digital breast tomosynthesis with 2D and 3D images. Computeraided detection. COMPARISON: Prior exam(s) dated 12/10/2023, 10/30/2022, 09/05/2021, 07/25/2020. FINDINGS: TISSUE DENSITY: The breast tissue is extremely dense which lowers the sensitivity of mammography. The mammogram demonstrates that the patient has dense breasts. Supplemental screening with whole breast ultrasound or MRI may be considered for further evaluation. Bilateral Breast Mammographic Findings: No significant masses, calcifications or other abnormalities are identified. BI/SCRN MAMM (CAD)W/ABHINAV BILAT IMPRESSION: Right Breast: BIRADS 1 NEGATIVE. Left Breast: BIRADS 1 NEGATIVE. OVERALL FINAL ASSESSMENT: BIRADS 1 NEGATIVE. RECOMMENDATION: Routine annual follow-up in 1 Year A letter with findings and recommendations will be mailed to the patient. Reading Location: [facility] CC: Dr. Akash Henderson MD; Dr. Nona Campbell DO ~ Station Chief: Signed [facility] SCRN MAMM (CAD)W/ABHINAV BILATo n 12-28-2024 SCRN MAMM (CAD)W/ABHINAV BILAT [facility] Imaging Services [address] [place] [id number] SCRN MAMM (CAD)W/ABHINAV BILAT MR#: [id number] Acct: [id number] Name: CECY MELCHOR Rep #: [id number] : 1965 F 59 From: Alondra Lew MD PCP: Dr. Akash Henderson MD Status: REG CLI Study: SCRN MAMM (CAD)W/ABHINAV BILAT Date of Exam: 12/01 05/26 Exam# [id number] Ordering Dr: Nona Campbell DO EXAM: SCRN MAMM (CAD)W/ABHINAV BILAT 12/28/2024 CLINICAL HISTORY: F, Age 59 y/o , SCREENING MAMMOGRAM TECHNIQUE: Bilateral screening digital breast tomosynthesis with 2D and 3D images. Computer aided detection. COMPARISON: Prior exam(s) dated 12/10/2023, 10/30/2022, 09/05/2021, 07/25/2020. FINDINGS: TISSUE DENSITY: The breast tissue is extremely dense which lowers the sensitivity of mammography. The mammogram demonstrates that the patient has dense breasts. Supplemental screening with whole breast ultrasound or MRI may be considered for further evaluation. Bilateral Breast Mammographic Findings: No significant masses, calcifications or other abnormalities are identified. BI/SCRN MAMM (CAD)W/ABHINAV BILAT IMPRESSION: Right Breast: BIRADS 1 NEGATIVE. Left Breast: BIRADS 1 NEGATIVE. OVERALL FINAL ASSESSMENT: BIRADS 1 NEGATIVE. RECOMMENDATION: Routine annual follow-up in 1 Year A letter with findings and recommendations will be mailed to the patient. Reading Location: [facility] CC: Dr. Akash Henderson MD; Dr. Nona Campbell DO Station Chief: Signed Normal [facility] Urine Cultureon 11-12-2024 URC Culture exhibits no growth. Normal [facility] Comment on above: Performed By: #### M 100.2856 #### [facility] [address] [place], [address] Urine cultureOrdered By: Fausto Chávez on 11-11-2024 Bacteria identified Cx Nom (U) Culture exhibits no growth. [facility] Spinner Operator Office Visit Reporton 11-03-2024 Spinner Operator Office Visit Report [facility]'[address], [address] [place] [address] OFFICE VISIT Date of Service: 11/03/24 MR#: [id number] Acct: [id number] Name: CECY MELCHOR Rep #: [id number] : 1965 Provider: Dr. 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 Required: No Is patient in pain?: No Allergies cefuroxime (From Ceftin) Allergy (Mild, Verified 11/03/24 13:36) unknown erythromycin base Allergy (Mild, Verified 11/03/24 13:36) unknown Penicillins Allergy (Mild, Verified 11/03/24 13:36) unknown Medications ???Medication ???Instructions ???Recorded ???Confirmed ???Type lisinopril 10 mg tablet 10 mg PO DAILY 07/25/20 11/03/24 H istory ascorbic acid (vitamin C) 500 mg mg PO 09/17/23 11/03/24 History capsule cholecalciferol (vitamin D3) 10 10 mcg PO DAILY 09/17/23 11/03/24 History mcg (400 unit) capsule fexofenadine 180 mg tablet 180 mg PO DAILY 09/17/23 11/03/24 History (Evita Allergy) venlafaxine 75 mg capsule,extended See Rx Instructions .Route 10/2311/03/24 Rx release 24 hr .COMPLEX #90 caps folic acid 400 mcg tablet 0.4 mg PO QDAY 11/03/24 11/03/24 H istory mecobalamin (vitamin B12) 5,000 mcg PO 11/03/24 11/03/24 History mcg disintegrating tablet nitrofurantoin 100 mg PO QDAY #90 caps 11/03/24 0 11/03/24 Rx monohydrate/macrocr ystals 100 mg capsule (Macrobid) Post menopausal: No Patient : No : No PFSH Medical History COVID-19 Back pain Shoulder pain Hemorrhoids Seasonal allergies Hypertension Depression with anxiety Surgical History uterine prolapse repair S/P left knee arthroscopy S/P tonsillectomy Family History Father Diabetes Heart disease Hypertension Kidney disease Mother Arrhythmia Grandmother CVA (cerebral vascular accident) Social History Smoking Status: Never smoker alcohol intake: current alcohol intake frequency: holidays/special occasions only substance use type: does not use caffeine: Yes what type of physical activity do you participate in: none seatbelt use: always do you feel safe at home: Yes additional social history: - Haresh- Works at [employer] Patient works at [employer] History 2 Elective abortions Hx Para 2 Spontaneous abortions Hx # Term Pregnancies Ectopic pregnancies Hx # Pregnancies Multiple births # of living children Past Pregnancies Del. Date Name GA/Weeks Outcome Route Bth Weight Infant Gen Labor Lgth Anesthesia Del Locatn Provider FOB Unknown Neva-1991 Unknown Coleen- 1994 HPI Encounter for routine gynecological examination Details: CECY MELCHOR is a 59 year old who presents for annual exam. having more hot flashes and mood swings but does not necessarily want to do anything about this. She is already taking effexor and the last time she increased the dose she had no emotions at all. She just wants to know if this is normal. She also is suffering with frequent uti's (at least 3 this year) despite using vaginal estrogen cream. Last PAP: 09/24/23 History of abnormal PAP: no Last mammogram: 12/2023 History of abnormal mammogram: no Colon cancer screening: up to date Other preventative health care screenings: up to date. due again 2026 Female Reproductive History Questions: metorrhagia: No, sexually active: Yes, dyspareunia: No and PCB: No Menopausal Symptoms: Yes hot flashes, Yes night sweats, No weight change, Yes mood changes, No difficulty concentrating, No sleep problems and No change in libido ROS Const Constitutional: Reports as per HPI and night sweats; Denies fatigue, increased appetite, poor appetite, weight gain or weight loss Cardio Card: Denies chest pain Resp Resp: Denies cough or dyspnea GI GI: Reports as per HPI; Denies abdominal pain, bloating, constipation, nausea or vomiting : Reports as per HPI, hot flashes and other; Denies difficulty voiding, dysuria, hematuria, nipple discharge, pelvic pain, prolapse symptoms, urinary frequency, urinary incontinence, urinary urgency, vaginal discharge, vaginal dryness, vaginal odor or vaginal pruritus Skin Sk (more content not included)... Normal [facility] 06-14-2024 CNPN Telephone (FAMPWS) ---- CECY MELCHOR ([id number]) 1965 F Date Time Provider Department 06/14/24 ENRIQUETA DOMINIQUE During your visit today, we recorded the following information about you: Kathryn Chakraborty MA 06/14/2024 12:58 PM Signed ----- Message from Enriqueta Dominique APRN.TUNGSTEN REFINER sent at 06/14/2024 12:34 PM EDT ----- Please advise patient the urine culture was negative- no evidence of UTI. Follow instructions given by provider at visit, f/u with PCP if symptoms persist or worsen. Enriqueta Dominique APRN.Kathryn Geller MA 06/14/2024 1:01 PM Signed Left detailed message on identified VM. Kathryn Chakraborty MA Allergies As of Date: 06/14/2024 Noted Allergy Reaction CEFTIN (CEFUROXIME AXETIL) 07/04/2010 14 - Other: See Comments ERYTHROMYCIN 07/04/2010 16 - Unknown PENICILLINS 07/04/2010 16 - Unknown Date Reviewed: 06/13/2024 Reviewed by: [place]ancon, Chrissy, PAPER SEALER - Fully Assessed Reason for Visit: Results [95] Prescriptions as of 06/14/2024 - lisinopril (ZESTRIL, PRINIVIL) 10 mg tablet Take 10 mg by mouth once daily. - lactobacillus combination no.8 (ADULT PROBIOTIC ORAL) Take by mouth. - cholecalciferol, vitamin D3, (VITAMIN D-3) 10 mcg (400 unit) cap Take 400 Units by mouth once daily. - MULTI-VITAMIN ORAL Take by mouth. - phenazopyridine (PYRIDIUM) 100 mg tablet Take 1 tablet by mouth three times daily as needed. - estradiol (ESTRACE) 0.01 % (0.1 mg/gram) vaginal cream pea-sized amount to lower vagina qhs 3 times a week - venlafaxine ER (EFFEXOR XR) 37.5 mg 24 hr capsule Take 1 capsule by mouth daily at bedtime. - Garlic cap Take by mouth once daily. - Magnesium 250 mg tab Take 250 mg by mouth. - VITAMIN B COMPLEX (SUPER B COMPLEX ORAL) Take by mouth. - UBIDECARENONE (CO Q-10 ORAL) Take by mouth. - Fish Oil-DHA-EPA 1,200-144-216 mg cap Take by mouth. - CYCLOSPORINE (RESTASIS OPHTHALMIC) Use in eyes. - Melatonin 5 mg tab Take 1 tablet by mouth daily at bedtime. - docusate sodium (STOOL SOFTENER) 100 mg capsule Take 1 capsule by mouth twice daily. - ascorbic acid (VITAMIN C) 500 mg tablet Take 1 tablet by mouth three times daily. - COMPOUNDED PRESCRIPTION D-3 1000IU take once daily - fexofenadine (EVITA) 60 mg ORAL tablet Take one(1) tablet twice daily. - ibuprofen (ADVIL) 200 mg ORAL tablet take as directed as needed Problem List As Of Date 06/14/2024 Noted Resolved Cystocele, midline [N81.11] 07/04/2010 Rectocele [N81.6] 07/04/2010 Enterocele [K46.9] 07/04/2010 11/03/2013 Uterine prolapse without mention of vaginal wal*07/04/2010 11/03/2013 Urinary urgency [R39.15] 05/28/2011 Anxious mood [F41.9] 05/25/2013 08/28/2013 PMDD (premenstrual dysphoric disorder) [F32.81] 06/08/2013 Constipation [K59.00] 06/22/2013 Fissure in ano [K60.2] 07/14/2013 Adjustment reaction with anxiety and depression*08/28/20 13 Encounter Status:Closed by KATHRYN CHAKRABORTY on 06/14/24 Normal [facility] Bacteria Ur Culton Bacteria identified Cx Nom (U) ORGANISM ID: 1 <10,000 CFU/ml Normal urogenital olga Normal [facility] Comment on above: Performed By: #### 6 30-4 #### [facility] CLIA [id number] [address] [place] [address] CNOVon 06-13-2024 CNOV Office Visit (UCWSTR) ---- CECY MELCHOR ([id number]) 1965 F Date Time Provider Department 06/13/24 1:30 PM CHRISTIAN JIN [facility] During your visit today, we recorded the following information about you: Temperature Pulse Respiration Blood pressure 98.4 degrees 93/minute 18/minute 138/86 Weight 73.9 kg Christian Jin PA 06/13/2024 1:48 PM Signed This note was created using [employer]riter. Subjective Cecy Melchor is a 59 year old female. HPI 59-year-old female presents for low back pain, nausea, generally on feeling well for the past couple of days. Patient states she went to be checked for UTI she has had these in the past and felt this way. Patient states she has had a little bit of urinary urgency. No frequency or burning. No blood in the urine. She has a little bit of low back pain, but states this is not really out of the ordinary for her. She has had some nausea and headache. No vomiting. No fevers. No other complaint. 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 lactobacillus combination no.8 (ADULT PROBIOTIC ORAL) Take by mouth. cholecalciferol, vitamin D3, (VITAMIN D-3) 10 mcg (400 unit) cap Take 400 Units by mouth once daily. estradiol (ESTRACE) 0.01 % (0.1 mg/gram) vaginal cream pea-sized amount to lower vagina qhs 3 times a week venlafaxine ER (EFFEXOR XR) 37.5 mg 24 hr capsule Take 1 capsule by mouth daily at bedtime. VITAMIN B COMPLEX (SUPER B COMPLEX ORAL) Take by mouth. Fish Oil-DHA-EPA 1,200-144-216 mg cap Take by mouth. Melatonin 5 mg tab Take 1 tablet by mouth daily at bedtime. docusate sodium (STOOL SOFTENER) 100 mg capsule Take 1 capsule by mouth twice daily. ascorbic acid (VITAMIN C) 500 mg tablet Take 1 tablet by mouth three times daily. COMPOUNDED PRESCRIPTION D-3 1000IU take once daily fexofenadine (EVITA) 60 mg ORAL tablet Take one(1) tablet twice daily. ibuprofen (ADVIL) 200 mg ORAL tablet take as directed as needed MULTI-VITAMIN ORAL Take by mouth. (Patient not taking: Reported on 06/13/2024) phenazopyridine (PYRIDIUM) 100 mg tablet Take 1 tablet by mouth three times daily as needed. (Patient not taking: Reported on 06/13/2024) Garlic cap Take by mouth once daily. (Patient not taking: Reported on 06/13/2024) Magnesium 250 mg tab Take 250 mg by mouth. (Patient not taking: Reported on 06/13/2024) UBIDECARENONE (CO Q-10 ORAL) Take by mouth. (Patient not taking: Reported on 06/13/2024) CYCLOSPORINE (RESTASIS OPHTHALMIC) Use in eyes. (Patient not taking: Reported on 06/13/2024) FAMILY HISTORY Problem Relation Age of Onset None Mother Diabetes Father Neuropathy Heart Father Social History Tobacco Use Smoking status: Never Smokeless tobacco: Never Substance Use Topics Alcohol use: No Drug use: No Review of Systems Constitutional: Negative for chills and fever. HENT: Negative for congestion, ear pain and sore throat. Respiratory: Negative for cough and shortness of breath. Cardiovascular: Negative for chest pain. Gastrointestinal: Positive for nausea. Negative for abdominal pain, diarrhea and vomiting. Genitourinary: Positive for urgency. Musculoskeletal: Positive for back pain. Objective BP 138/86 Pulse 93 Temp 36.9 ?C (98.4 ?F) (Tympanic) Resp 18 Wt 73.9 kg (162 lb 14.7 oz) LMP 11/19/2016 (Within Days) SpO2 98% BMI 27.97 kg/m? Physical Exam Vitals and nursing note reviewed. Constitutional: General: She is not in acute distress. Appearance: Normal appearance. She is not toxic-appearing. HENT: Nose: Nose normal. Mouth/Throat: Mouth: Mucous membranes are moist. Eyes: Conjunctiva/sclera: Conjunctivae normal. Cardiovascular: Rate and Rhythm: Normal rate and regular rhythm. Pulmonary: Effort: Pulmonary effort is normal. Breath sounds: Normal breath sounds. Abdominal: General: Abdomen is flat. Palpations: Abdomen is soft. Tenderness: There is no abdominal tenderness. There is no right CVA tenderness, left CVA tenderness, guarding or rebound. Skin: General: Skin is warm and dry. Neurological: Mental Status: She is alert. Assessment and Plan ASSESSMENT/PLAN: 1. Acute midline low back pain without sciatica - ICD9: 724.2, ICD10: M54.50 (more content not included)... Normal [facility] UA DIP, URINE (POC)on 2023 BILIRUBIN UA (POCT) Negative Negative [facility] CLARITY UA (POCT) Clear [facility] COLOR UA (POCT) Yellow [facility] GLUCOSE UA (POCT) Negative Negative mg/dL [facility] Hemoglobin Ql (U) Negative Negative [facility] KETONE UA (POCT) Negative Negative mg/dL [facility] LEUKOCYTES UA (POCT) Negative [facility]) Negative Negative [facility] PH UA (POCT) 6.0 4.5 - 8.0 [facility] Protein Ql (U) Negative Negative mg/dL [facility] SPECIFIC GRAVITY UA (POCT) 1.015 1 .005 - 1.030 [facility] UROBILINOGEN UA (POCT) 0.2 Juanis l E.U./dL [facility] Location:[facility] [address] [place] [address], [id number] [place] [address] POINT OF CARE [facility] Knee 4 or More Viewson 05-04 Knee 4 or More Views [facility] [address] [place], [place] [address] Knee 4 or More Views MR#: [id number] Acct: [id number] Name: CECY MELCHOR Rep #: [id number] : 1965 F 59 From: Isra Lora MD PCP: Dr. Akash Henderson MD Status: REG CLI Study: Knee 4 or More Views Date of Exam: 05/04/24 Exam# [id number] Ordering Dr: Akash Henderson MD -[id number] STUDY: X-RAY - LEFT KNEE REASON FOR EXAM: Female, 59 years old. Pain -- left knee per Irma TECHNIQUE: 4 view(s) of the knee. COMPARISON: None. FINDINGS: Normal visualized distal femur. Normal visualized proximal tibia and fibula. Normal proximal tibiofibular articulation. Normal medial femorotibial compartment. Normal lateral femorotibial compartment. Normal patellofemoral articulation. The soft tissue structures are unremarkable. RAD/Knee 4 or More Views IMPRESSION: Normal x-ray examination of the knee. Electronically Signed: Isra Lora MD at 8:30 EDT , CC: Dr. Akash Henderson MD Station Chief: Signed Normal [facility] Urine Cultureon 04-22-2024 URC Culture exhibits no growth. Normal [facility] Comment on above: Performed By: #### L 400.0001, M100.2200 #### [facility] [address] [place], [address] Urinalysis, Completeon 04-21 EPI,SQUAMOUS 0-5 SEEN Normal 5-10 [facility] Comment on above: Order Comment: COLLE CTOR TO SPECIFY Performed By: #### L 400.0001, M100.2200 #### [facility] [address] [place], [address] WBC 25-50 SEEN Normal 0-5 [facility] Comment on above: Order Comment: COLLE CTOR TO SPECIFY Performed By: #### L 400.0001, M100.2200 #### [facility] [address] [place], [address] BACTERIA 0 SEEN Normal None Seen [facility] Comment on above: Order Comment: COLLE CTOR TO SPECIFY Performed By: #### L 400.0001, M100.2200 #### [facility] [address] [place], [address] Mucus Ql (Urine sed) 0 SEEN Normal [facility] Comment on above: Order Comment: COLLE CTOR TO SPECIFY Performed By: #### L 400.0001, M100.2200 #### [facility] [address] [place], [address] RBC 0 SEEN Normal 0-5 [facility] Comment on above: Order Comment: COLLE CTOR TO SPECIFY Performed By: #### L 400.0001, M100.2200 #### [facility] [address] [place], [address] Urgent Care Visit Reporton 0 04-20-2024 Urgent Care Visit Report [facility] [address], [address] [place] [address] OFFICE VISIT Date of Service: 04/20/24 MR#: [id number] Acct: [id number] Name: CECY MELCHOR Rep #: [id number] : 1965 Provider: REJI Mckay Age/Sex: 59/F Location: [facility] Status: Signed Intake Vital Signs 09/24/23 14:03 04/20/24 12:30 Height 5 ft 4 in 5 ft 4 in Weight: 160 lb BMI 27.4 BP 132/86 H Blood Pressure Location Lt brachial Position Sitting Respiration 16 Pulse 105 H Pulse Source Monitor Temp 98.7 F Temp Source Temporal Pulse Oximetry (%) 97 Oxygen Delivery Method room air Intake Visit Reasons: CONCERN FOR UTI Chief Complaint: DYSURIA Assistant Customer Service Manager Required: No Accompanied by: Self Is patient in pain?: No Allergies cefuroxime (From Ceftin) Allergy (Mild, Verified 04/20/24 12:31) unknown erythromycin base Allergy (Mild, Verified 04/20/24 12:31) unknown Penicillins Allergy (Mild, Verified 04/20/24 12:31) unknown Medications ???Medication ???Instructions ???Recorded ???Confirmed ???Type lisinopril 10 mg tablet 10 mg PO DAILY 07/25/20 04/20/24 History ascorbic acid (vitamin C) 500 mg mg PO 09/17/23 04/20/24 History capsule cholecalciferol (vitamin D3) 10 10 mcg PO DAILY 09/17/23 04/20/24 History mcg (400 unit) capsule docusate sodium 100 mg capsule 100 mg PO DAILY 09/17/23 04/20/24 History (Colace) fexofenadine 180 mg tablet 180 mg PO DAILY 09/17/23 04/20/24 History (Evita Allergy) melatonin 10 mg capsule 10 mg PO HS PRN 09/17/23 04/20/24 History phytonadione (vitamin K1) 100 mcg 100 mcg PO DAILY 09/17/23 04/20/24 History tablet vitamin B complex 1 tab PO DAILY 09/17/23 04/20/24 History venlafaxine 75 mg capsule,extended See Rx Instructions .Route 10/23/23 04/20/24 Rx release 24 hr .COMPLEX #90 caps nitrofurantoin 100 mg PO Q12H 5 days #10 caps 04/20/24 04/20/24 Rx monohydrate/macrocr ystals 100 mg capsule (Macrobid) PFSH Medical History Back pain COVID-19 Depression with anxiety Hemorrhoids Hypertension Seasonal allergies Shoulder pain Surgical History S/P left knee arthroscopy S/P tonsillectomy uterine prolapse repair Family History Father Diabetes Heart disease Hypertension Kidney disease Mother Arrhythmia Grandmother CVA (cerebral vascular accident) Social History Smoking Status: Never smoker alcohol intake: current alcohol intake frequency: holidays/special occasions only substance use type: does not use caffeine: Yes what type of physical activity do you participate in: none seatbelt use: always do you feel safe at home: Yes additional social history: - Haresh- Works at [employer] Patient works at [employer] HPI HPI Chief Complaint: DYSURIA Details: CECY MELCHOR, is a 59 F who presents to the office today for [facility] at [facility] for approximately 6-7 day history of dysuria and urinary frequency with suprapubic pressure. No complaints of fever, chills, sweats, lightheadedness/diz ziness, nausea/vomiting, or chest pain/shortness of breath/dyspnea on exertion/mid-back pain. No changes in color/ character of urine or stool. No jugz-yyl-gerirsm products taken to assist. No other associated symptoms and no alleviating/aggrava ting factors. ROS Const Constitutional: No other (As above) Exam Const General: cooperative, healthy appearing and no acute distress Orientation: alert, awake and oriented x3 Chest Chest palpation inspection: normal inspection of the chest Resp Effort Inspection: normal respiratory effort and able to speak in complete sentences Auscultation: Bilateral: Clear to Auscultation Cardio Palpation: normal PMI Rate: regular rate Rhythm: regular rhythm Heart Sounds: S1 normal, S2 normal, no gallops, no murmurs and no rubs Pulses: radial pulses present GI Inspection: normal to inspection Palpation: soft and tender suprapubic (Patient describes upon self-palpation) General: No CVA tenderness Skin General: no rashes or lesions noted Neuro General: patient alert, patient awake and patient oriented x3 Cognition: normal cognition Speech: speech normal Psych Appearance: grossly normal Mental Status: mental status grossly normal Mood: congruent mood Affect: normal affect Speech and Movement: speech and movement normal Attitude: cooperative Diagnoses Urinary tract infection N39.0 Assessment and Plan Assessment and Plan (1) Urinary tract infection: Status: Acute Plan: See POC results; urine sent to lab for UA and C/S. Macrobi (more content not included)... Normal [facility] Basophil percentageOrdered B y: Amber Metcalf on 09-30-2023 Bilirubin [Mass/Vol] 0.40 mg/dL 0.20-1.00 [facility] Comment on above: For patients on eltr ombopag therapy, use of Dimension [place] TBIL is not recommended. Chloride [Moles/Vol] 105 mmol/L 98-107 [facility] Cholesterol [Mass/Vol] 236 mg/dL <200 [facility] Comment on above: <200 mg/dL Desirable 200-240 mg/dL Borderline >240 mg/dL High Risk Glucose [Mass/Vol] 100 mg/dL 74-106 [facility] Comment on above: Fasting Glucose resu lt from 100 to 125 mg/dL suggests IMPAIRED HOMEOSTASIS per A.D.A. criteria. Hemoglobin (Bld) [Mass/Vol] 14.2 g/dL 12.0-15. 0 [facility] Potassium [Moles/Vol] 4.2 mmol/L 3.5-5.1 [facility] Protein [Mass/Vol] 7.4 g/dL 6.4-8.2 [facility] Sodium [Moles/Vol] 135 mmol/L 136-145 [facility] Triglyceride [Mass/Vol] 68 mg/dL <199 [facility] Comment on above: The drugs N-Acetylcy steine and Metamizole may falsely depress this assay.Serum Triglycerides Reference Interval Normal <150 mg/dL Borderline high 150 - 199 mg/dL High 200 - 499 mg/dL Very High > or = 500 mg/dL WBC (Bld) [#/Vol] 4.5 10*3/uL 4.4-11.0 [facility] Determination of erythrocyte mean corpuscular volume (MCV)Ordered By: Amber Metcalf on 09-30-2023 MCV (RBC) [Entitic vol] 86.1 fL 81-99 [facility] Erythrocyte distribution wid th ratioOrdered By: Amber Metcalf on 09-30-2023 Erythrocyte distribution width (RBC) [Ratio] 12.6 % 11.6-14.6 [facility] Erythrocyte distribution wid th standard deviationOrdered By: Amber Metcalf on 09-30-2023 Erythrocyte distribution width (RBC) [Entitic vol] 39.7 fL 35.1-43.9 [facility] Hematocrit Auto (Bld) [Volum e fraction]Ordered By: Amber Metcalf on 09-30-2023 Hematocrit (Bld) [Volume fraction] 42.0 % 37-47 [facility] High density lipoprotein (HD L) measurementOrdered By: Amber Metcalf on 09-30-2023 Cholesterol in HDL (Body fld) [Mass/Vol] 78 mg/dL >40 [facility] Comment on above: The drugs N-Acetylcy steine and Metamizole may falsely depress this assay. Reference Range HDL <40 mg/dL Low HDL Cholesterol HDL >or= 60 mg/dL High HDL Cholesterol Laboratory - Chemistry and C hemistry - challengeOrdered By: Amber Metcalf on 09-30-2023 Albumin/Globulin [Mass ratio] 1.1 {ratio} 0.9-2.4 [facility] ALP [Catalytic activity/Vol] 66 U/L 45-117 [facility] ALT [Catalytic activity/Vol] 32 U/L 13-56 [facility] CO2 [Moles/Vol] 27.0 mmol/L 21.0-32.0 [facility] Cobalamin (Vitamin B12) [Mass/Vol] 715 pg/mL 211-911 [facility] Globulin (S) [Mass/Vol] 3.5 g/dL 2.2-4.2 [facility] Urea nitrogen/Creatinine [Mass ratio] 20.4 mg/mg 10-20 [facility] Laboratory - Hematology and Cell countsOrdered By: Amber Metcalf on 09-30-2023 MCH (RBC) [Entitic mass] 29.1 pg 27.0-32.0 [facility] MCHC (RBC) [Mass/Vol] 33.8 g/dL 32-36 [facility] Platelets (Bld) [#/Vol] 236 10*3/uL 150-450 [facility] Low density lipoprotein (LDL ) cholesterol measurementOrdered By: Amber Metcalf on 09-30-2023 Cholesterol in LDL (Body fld) [Moles/Vol] 144 mg/dL 0-130 [facility] No Panel InformationOrdered By: Amber Metcalf on 09-30-2023 Estimated GFR (MDRD) Amer 105 mL/min >60 [facility] Comment on above: GFR Calc Estimated GFR (MDRD) Non-Af Amer 87 mL/min >60 [facility] Comment on above: Non- GFR Calc Vitamin D 25-Hydroxy 53.7 ng/mL [facility] Comment on above: Vitamin D 25(OH) Sta tus Range Deficiency <20 ng/mL (50nmol/L) Insufficiency 20 - 30 ng/mL (50 - 75 nmol/L) Sufficiency 30 - 100 ng/mL (75 - 250 nmol/L) Toxicity >100 ng/mL (>250 nmol/L) Platelet mean volume Agbriel-Ec ker (Bld) [Entitic vol]Ordered By: Amber Metcalf on 09-30-2023 Platelet mean volume (Bld) [Entitic vol] 9.9 fL 6.2-12.0 [facility] RBC Auto (Bld) [#/Vol]Ordere d By: Amber Metcalf on 09-30-2023 RBC (Bld) [#/Vol] 4.88 10*6/uL 4.2-5.4 [facility] Serum or plasma calcium daylin urement (mass/volume)Ordered By: Amber Metcalf on 09-30-2023 Calcium [Mass/Vol] 9.3 mg/dL 8.5-10.1 [facility] Serum or plasma creatinine m easurement (mass/volume)Ordered By: Amber Metcalf on 09-30-2023 Creatinine [Mass/Vol] 0.73 mg/dL 0.55-1.02 [facility] Comment on above: The validity of the calculated GFR & GFRAA in patients over 70 years has not been determined. Clinical correlation is essential. Serum or plasma thyroid stim ulating hormone (TSH) measurement (units/volume)Ordered By: Amber Metcalf on 09-30-2023 TSH Qn 0.69 uIU/mL 0.358-3.74 [facility] Serum or plasma urea nitroge n measurement (mass/volume)Ordered By: Amber Metcalf on 09-30-2023 Urea nitrogen [Mass/Vol] 15 mg/dL 7-18 [facility] Thin prep Papanicolaou smear with manual screeningOrdered By: Amber Metcalf on 09-30-2023 Thin prep Papanicolaou smear with manual screening 3.9 g/dL 3.2-5.0 [facility] Thin prep Papanicolaou smear with manual screening 17 U/L 15-37 [facility] Thin prep Papanicolaou smear with manual screening 3 5-15 [facility] Thin prep Papanicolaou smear with manual screening < 5.0 mg/L NO RANGE EST. [facility] Urine albumin/creatinine rat io for detection of microalbuminuriaOrdered By: Amber Metcalf on 09-30-2023 Albumin/Creatinine DL <= 1.0 mg/L (24H U) [Ratio] TNP [facility] Comment on above: Test not performed Urine creatinine measurement (mass/volume)Ordered By: Amber Metcalf on 09-30-2023 Creatinine (U) [Mass/Vol] 42.80 mg/dL NO RANGE EST. [facility] Very low density lipoprotein (VLDL) cholesterol measurementOrdered By: Amber Metcalf on 09-30-2023 Cholesterol in VLDL Calc [Moles/Vol] 14 mg/dL 5-40 [facility] Cervical or vaginal specimen microscopic examination by liquid based cytology (reported as document)Ordered By: Nona Winkler on 09-24-2023 Cytology report Cyto stain.thin prep Doc (Cvx/Vag) Comment . [facility] Comment on above: Criteria not met, HP V Genotype not performed.Performed at: - [facility] [id number] [facility] [place], [place] [id number] Director: Mayelin Muñoz MD, Phone: [phone] at: =G - [facility] [id number] [place], [place] [id number] Director: Mayelin Muñoz MD, Phone: [phone] Cervical or vagninal specime n microscopic examination by cytology stain (reported asOrdered By: Nona Winkler on 09-24-2023 Cytology report Cyto stain Doc (Cvx/Vag) Comment . [facility] Comment on above: The Pap smear is a s creening test designed to aid in thedetection of premalignant and malignant conditions of theuterine cervix. It is not a diagnostic procedure andshould not be used as the sole means of detecting cervicalcancer. Both false-positive and false-negative reports dooccur. Detection in cervical specim en of any of human papilloma virus (HPV) 16, 18, 31, 33,Ordered By: Nona Winkler on 09-24-2023 HPV 16+18+31+33+35+39+45+51+52+ 56+58+59+66+68 DNA Probe+sig amp Ql (Cvx) Negative Negative [facility] Comment on above: This nucleic acid am plification test detects fourteen high-risk HPV types (16,18,31,33,35,39,45,51,52,56,58,59,66,68)without differentiation. Laboratory - CytologyOrdered By: Nona Winkler on 09-24-2023 Mop Handle Assembler Cyto stain Nom (Cvx/Vag) [ID] Comment . [facility] Comment on above: Durga Chow, Cyto technologist (ASCP) Laboratory - Miscellaneous t estsOrdered By: Nona Winkler on 09-24-2023 Service comment (Unsp spec) [Interp] . . [facility] Thin prep Papanicolaou smear with manual screeningOrdered By: Nona Winkler on 09-24-2023 Thin prep Papanicolaou smear with manual screening Comment . [facility] Comment on above: NEGATIVE FOR INTRAEP ITHELIAL LESION OR MALIGNANCY. This liquid based Th inPrep(R) pap test was screened withthe use of an image guided system. Culture, urineOrdered By: Lenard Ocasio on 03-17-2023 Bacteria identified Cx Nom (U) Culture exhibits no growth. [facility] Culture, urineOrdered By: Dr Hector Null on 09-07-2022 Bacteria identified Cx Nom (U) Presumptive E. coli [facility] Laboratory - Chemistry and C hemistry - challengeon 09-05-2022 Bilirubin Ql (U) Negative [facility] Glucose Ql (U) Negative [facility] Ketones Ql (U) Negative [facility] Specific gravity (U) [Rel density] 1.015 [facility] Urobilinogen (U) [Mass/Vol] Negative [facility] Laboratory - Hematology and Cell countson 09-05-2022 Hemoglobin Ql (U) Negative [facility] Laboratory - Specimen inform ationon 09-05-2022 Clarity (U) Clear [facility] Color (U) YELLOW [facility] Laboratory - Urinalysison Nitrite Ql (U) Negative [facility] Protein Ql (U) Negative [facility] No Panel Informationon 09-05 Urine Leukocytes Negatve [facility] Urine Non-Hemolyzed Blood [facility] Vital Signs Date Time Vital Sign Value Performing Clinician Faci lity 11-03-2024 13:32-0500 Body height 162.56 cm Akash Henderson MD Work Phone: [facility] 11-03-2024 13:32-0500 Body mass index (BMI) [Ratio] 27.8 kg/m2 Akash Henderson MD Work Phone: [facility] 11-03-2024 13:32-0500 Body weight 73.65 kg Akash Henderson MD Work Phone: [facility] 11-03-2024 13:32-0500 Diastolic blood pressure 80 mm[Hg] Akash Henderson MD Work Phone: [facility] 11-03-2024 13:32-0500 Systolic blood pressure 119 mm[Hg] Akash Henderson MD Work Phone: [facility] 06-13-2024 13:40-0400 Body mass index (BMI) [Ratio] 27.97 kg/m2 Krislyn Aberegg PA Work Phone: [facility] 06-13-2024 13:40-0400 Body temperature 98.4 [degF] Krislyn Aberegg PA Work Phone: [facility] 06-13-2024 13:40-0400 Body weight 73.9 kg Krislyn Aberegg PA Work Phone: [facility] 06-13-2024 13:40-0400 Diastolic blood pressure 86 mm[Hg] Krislyn Aberegg PA Work Phone: [facility] 06-13-2024 13:40-0400 Heart rate 93 /min Krislyn Aberegg PA Work Phone: [facility] 06-13-2024 13:40-0400 Respiratory rate 18 /min Krislyn Aberegg PA Work Phone: [facility] 06-13-2024 13:40-0400 SaO2% (BldA) [Mass fraction] 98 % Krislyn Aberegg PA Work Phone: [facility] 06-13-2024 13:40-0400 Systolic blood pressure 138 mm[Hg] Krislyn Aberegg PA Work Phone: [facility] 09-24-2023 14:03-0500 Body height 162.56 cm DO Amber Tea Work Phone: [facility] 09-24-2023 14:01-0500 Body mass index (BMI) [Ratio] 27.6 kg/m2 DO Amber Tea Work Phone: [facility] 09-24-2023 14:01-0500 Body weight 73.08 kg DO Amber Tea Work Phone: [facility] 09-24-2023 14:01-0500 Diastolic blood pressure 83 mm[Hg] DO Amber Tea Work Phone: [facility] 09-24-2023 14:01-0500 Systolic blood pressure 127 mm[Hg] DO Amber Payneer Work Phone: [facility] 09-11-2022 14:46-0500 Body height 162.56 cm DO Amber Rodartenger Work Phone: [facility] 09-11-2022 14:46-0500 Body mass index (BMI) [Ratio] 26.6 kg/m2 DO Amber Rodartenger Work Phone: [facility] 09-11-2022 14:46-0500 Body weight 70.53 kg DO Amber Payneer Work Phone: [facility] 09-11-2022 14:46-0500 Diastolic blood pressure 78 mm[Hg] DO Amber Metcalf Work Phone: [facility] 09-11-2022 14:46-0500 Systolic blood pressure 122 mm[Hg] DO Amber Metcalf Work Phone: [facility] Encounters Encounter Date Encounter Type Care Provider Facility Start: 03-29-2025 End: 03-29-2025 ambulatory Akash Henderson MD Work Phone: [facility] Start: 03-29-2025 End: 03-29-[address] Akash Henderson MD -[facility] Work Phone: Start: 03-29-2025 End: 03-29-2025 ambulatory Akash Henderson Facility:[facility] Start: 12-28-2024 End: 12-28-2024 ambulatory Akash Henderson MD Work Phone: [facility] Work Phone: Start: 12-28-2024 End: 12-28-[address] Nona Campbell DO -Outpatient Breast Imaging Work Phone: Start: 12-28-2024 End: 12-28-2024 ambulatory Nona Campbell Facility:[facility] Start: 11-11-2024 End: 11-11-2024 ambulatory Akash Henderson MD Work Phone: [facility] Work Phone: Start: 11-11-2024 End: 11-11-2024 Patient encounter procedure Sally Chávez TRIAGE CLINICIAN-C -Laboratory, Specimen Work Phone: Start: 11-11-2024 End: 11-11-2024 ambulatory Sally Chávez NP Facility:[facility] Start: 11-03-2024 End: 11-03-[address] Nona Campbell DO [facility] Work Phone: Start: 11-03-2024 End: 11-03-[address] Nona Campbell DO [facility] Start: 11-03-2024 End: 11-03-2024 ambulatory Nona Campbell Facility:[facility] Start: 06-14-2024 End: 06-14-2024 Telephone encounter Enriqueta Dominique APRN.CNP Work Phone: [facility] Comment on above: Results Start: 06-13-2024 End: 06-13-2024 ambulatory DREW MIRANDA Facility:[facility] Start: 06-13-2024 End: 06-13-2024 Patient encounter procedure Christian MENDOZA Work Phone: [facility] Comment on above: Acute midline low ba ck pain without sciatica (Primary Dx) Start: 05-04-2024 End: 05-04-2024 ambulatory Akash Henderson Facility:[facility] Start: 04-20-2024 End: 04-21-2024 ambulatory Nico MENDOZA Facility:[facility] Start: 12-10-2023 End: 12-10-2023 ambulatory DO Amber Metcalf Work Phone: [facility] Work Phone: Start: 12-10-2023 End: 12-10-2023 Patient encounter procedure DO Amber Metcalf Work Phone: [facility]-Outpatient Breast Imaging Work Phone: Start: 09-30-2023 End: 09-30-2023 ambulatory DO Amber Metcalf Work Phone: [facility] Work Phone: Start: 09-30-2023 End: 09-30-2023 Patient encounter procedure DO Amber Payneer Work Phone: [facility]-Ultrasound, [facility] Work Phone: Start: 09-30-2023 End: 09-30-2023 ambulatory DO Amber Metcalf Work Phone: [facility] Work Phone: Start: 09-30-2023 End: 09-30-2023 Patient encounter procedure DO Amber Payneer Work Phone: [facility] Work Phone: Start: 09-24-2023 End: 09-24-2023 ambulatory DO Amber Metcalf Work Phone: [facility] Work Phone: Start: 09-24-2023 End: 09-24-2023 Patient encounter procedure DO Amber Metcalf Work Phone: [facility], [facility] Work Phone: Start: 09-24-2023 End: 09-24-2023 Patient encounter procedure DO Amber Payneer Work Phone: [facility] Work Phone: Start: 03-17-2023 End: 03-17-2023 ambulatory DO Amber Metcalf Work Phone: [facility] Work Phone: Start: 03-17-2023 End: 03-17-2023 Patient encounter procedure DO Amber Payneer Work Phone: [facility]-Laboratory, Specimen Work Phone: Start: 03-17-2023 End: 03-17-2023 Patient encounter procedure DO Amber Metcalf Work Phone: [facility] Work Phone: Start: 12-20-2022 End: 12-20-2022 Patient encounter procedure DO Amber Metcalf Work Phone: [facility] Work Phone: Start: 10-30-2022 End: 10-30-2022 ambulatory DO Amber Metcalf Work Phone: [facility] Work Phone: Start: 10-30-2022 End: 10-30-2022 Patient encounter procedure DO Amber Metcalf Work Phone: [facility]-Outpatient Breast Imaging Start: 09-11-2022 End: 09-11-2022 Patient encounter procedure DO Amber Metcalf Work Phone: [facility] Start: 09-05-2022 End: 09-05-2022 ambulatory DO Amber Metcalf Work Phone: [facility] Work Phone: Start: 09-05-2022 End: 09-05-2022 Patient encounter procedure DO Amber Metcalf Work Phone: [facility]-Laboratory, Specimen Start: 09-05-2022 End: 09-05-2022 Patient encounter procedure DO Amber Metcalf Work Phone: [facility] Procedures Date Procedure Procedure Detail Performing Clinician Start: 12-28-2024 Screening mammography Niyah Henderson MD Work Phone: Start: 11-11-2024 Urine culture Akash maciel MD Work Phone: Start: 06-13-2024 Urnls dip stick/tabl et rgnt auto w/o microscopy Christian MENDOZA Work Phone: Start: 12-10-2023 Screening mammography D O Amber Metcalf Work Phone: Start: 09-30-2023 Pelvic echography DO Tylor Metcalf Work Phone: Start: 03-17-2023 Urine culture DO Angela Metcalf Work Phone: Start: 12-20-2022 Radiography of sacrococcygeal spine DO Amber Metcalf Work Phone: Start: 10-30-2022 Screening mammography D O Amber Metcalf Work Phone: Start: 11-18-2019 Colonoscopy Tyloriswesley MENDOZA Work Phone: Urine culture DO Amber tapia Work Phone: Plan of Treatment Date Care Activity Detail Author Start: 11-17-2029 Screening for malign ant neoplasm of colon [facility] Start: 04-06-2029 Urine microalbumin profile DTaP,Tdap,Td Vaccine (2 - Td or Tdap) [facility] Start: 05-02-2024 Covid-19 Vaccine ( season) Covid-19 Vaccine ( season) [facility] Start: 05-02-2024 Influenza vaccination Influenza Vacc ine (#1) [facility] Start: 09-24-2023 Liquid based cervica l cytology screening [facility] Start: 09-10-2021 Screening for malign ant neoplasm of cervix Cervical Cancer Screening [facility] Start: 09-10-2017 Screening for malign ant neoplasm of breast Mammogram Screening [facility] Start: 02-18-2016 Shingrix Vaccine (1 of 2) Shingrix Vaccine (1 of 2) [facility] Start: 10-24-2013 Diabetes Screening Diabetes Screenin g [facility] Start: 2011 Lipid panel Lipid Screening [facility] Start: 2011 Screening for malign ant neoplasm of colon [facility] Start: 1985 Hepatitis B Vaccine (1 of 3 - 19+ 3-dose series) Hepatitis B Vaccine (1 of 3 - + 3-dose series) [facility] Start: 02-18-1984 Anxiety Screening Anxiety Screening [facility] Start: 02-18-1984 Hepatitis C screening Hepatitis C Sc greg [facility] Start: 02-18-1984 HIV screening HIV Screening [facility] Bacteria identified in Urine by Culture URINE CULTURE Microbiology Routine Acute midline low back pain without sciatica Ordered: 06/13/2024 [facility] Work Phone: Comment on above: Ordered: 06/13/2024 Liquid based cervica l cytology screening [facility] MG Breast - bilatera l Screening [facility] MG Breast - bilatera l Screening [facility] MG Breast - bilatera l Screening [facility] Path report.final Dx Spec [facility] [place] Pelvis [facility] Payers Date Payer Category Payer Private Health Insurance [id number] 2024 Private Health Insurance [id number] 2024 Unknown CECELIA TREJO PPO [id number] 2024-Present [phone] [address] [place] [address] PPO [id number] 2024 Self-pay [id number] 2024 Unknown [id number] Unknown [id number] 62 Unknown [id number] 62 Unknown [id number] 62 Unknown [id number] 62 Unknown [id number] 62 Unknown [id number] 62 Unknown [id number] 62 Social History Date Type Detail Facility Start: 09-11-2022 End: 09-24-2023 Tobacco smoking status TXIS Unknown if ever smoked [facility] Start: 1965 Sex Assigned At Female [facility] Start: 09-24-2023 End: 06-13-2024 Tobacco smoking status NHIS Never smoked tobacco [facility] Start: 06-13-2024 Tobacco use and exposure Smokeless tobacco non-user [facility] Start: 06-13-2024 Alcoholic beverage intake Current non-drinker of alcohol (finding) [facility] Start: 08-06-2020 End: 06-13-2024 History of Social function [facility] Start: 08-06-2020 End: 06-13-2024 Tobacco use panel [facility] National Score (1-10 0), lower number is lower risk Not on file [facility] Start: 1965 Sex assigned at Not on file [facility] Start: 11-22-2024 Sex Female (finding) [facility] Medical Equipment Procedure Code Equipment Code Equipment Origin al Text Equipment Identifier Dates Vag Support [facility] [id number] - [id number] Start: 10-24-2010 Clinical Notes 09-24-2023 to 11-03-2024 Note Date & Type Note Facility 11-03-2024 Evaluation note Diagnosis Onset Date Resolution Encounter for routine gynecological examination noneactive November 03, 2024 1:23pm [facility] Work Phone: [phone] Telephone encounter Note* Telephone Encounter - Kathryn Chakraborty MA - 06/14/2024 1:00 PM EDT Left detailed message on identified VM. Kathryn Chakraborty MA [facility]10-14-2024 Miscellaneous Notes* Telephone Encounter - Kathryn Chakraborty MA - 06/14/2024 1:00 PM EDT Left detailed message on identified VM. Kathryn Chakraborty MA * Telephone Encounter - Kathryn Chakraborty MA - 06/14/2024 12:58 PM EDT ----- Message from Enriqueta Dominique APRN.CNP sent at 06/14/2024 12:34 PM EDT ----- Please advise patient the urine culture was negative- no evidence of UTI. Follow instructions given by provider at visit, f/u with PCP if symptoms persist or worsen. Enriqueta Dominique APRN.CNP [facility] Telephone encounter Note * Telephone Encounter - Kathryn Chakraborty MA - 06/14/2024 12:58 PM EDT ----- Message from Enriqueta Dominique APRN.CNP sent at 06/14/2024 12:34 PM EDT ----- Please advise patient the urine culture was negative- no evidence of UTI. Follow instructions given by provider at visit, f/u with PCP if symptoms persist or worsen. Enriqueta Dominique APRN.CNP [facility]10-13-2024 History of Present illness Narrative* Christian Jin PA - 06/13/2024 1:47 PM EDT This note was created using [employer]riter. Wicho Melchor is a 59 year old female. HPI 59-year-old female presents for low back pain, nausea, generally on feeling well for the past couple of days. Patient states she went to be checked for UTI she has had these in the past and felt this way. Patient states she has had a little bit of urinary urgency. No frequency or burning. No blood in the urine. She has a little bit of low back pain, but states this is not really out of the ordinary for her. She has had some nausea and headache. No vomiting. No fevers. No other complaint. 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 lactobacillus combination no.8 (ADULT PROBIOTIC ORAL) Take by mouth. cholecalciferol, vitamin D3, (VITAMIN D-3) 10 mcg (400 unit) cap Take 400 Units by mouth once daily. estradiol (ESTRACE) 0.01 % (0.1 mg/gram) vaginal cream pea-sized amount to lower vagina qhs 3 timesa week venlafaxine ER (EFFEXOR XR) 37.5 mg 24 hr capsule Take 1 capsule by mouth daily at bedtime. VITAMIN B COMPLEX (SUPER B COMPLEX ORAL) Take by mouth. Fish Oil-DHA-EPA 1,200-144-216 mg cap Take by mouth. Melatonin 5 mg tab Take 1 tablet by mouth daily at bedtime. docusate sodium (STOOL SOFTENER) 100 mg capsule Take 1 capsule by mouth twice daily. ascorbic acid (VITAMIN C) 500 mg tablet Take 1 tablet by mouth three times daily. COMPOUNDED PRESCRIPTION D-3 1000IU take once daily fexofenadine (EVITA) 60 mg ORAL tablet Take one(1) tablet twice daily. ibuprofen (ADVIL) 200 mg ORAL tablet take as directed as needed MULTI-VITAMIN ORAL Take by mouth. (Patient not taking: Reported on 06/13/2024) phenazopyridine (PYRIDIUM) 100 mg tablet Take 1 tablet by mouth three times daily as needed. (Patient not taking: Reported on 06/13/2024) Garlic cap Take by mouth once daily. (Patient not taking: Reported on 06/13/2024) Magnesium 250 mg tab Take 250 mg by mouth. (Patient not taking: Reported on 06/13/2024) UBIDECARENONE (CO Q-10 ORAL) Take by mouth. (Patient not taking: Reported on 06/13/2024) CYCLOSPORINE (RESTASIS OPHTHALMIC) Use in eyes. (Patient not taking: Reported on 06/13/2024) FAMILY HISTORY Problem Relation Age of Onset None Mother Diabetes Father Neuropathy Heart Father Social History Tobacco Use Smoking status: Never Smokeless tobacco: Never Substance Use Topics Alcohol use: No Drug use: No Review of Systems Constitutional: Negative for chills and fever. HENT: Negative for congestion, ear pain and sore throat. Respiratory: Negative for cough and shortness of breath. Cardiovascular: Negative for chest pain. Gastrointestinal: Positive for nausea. Negative for abdominal pain, diarrhea and vomiting. Genitourinary: Positive for urgency. Musculoskeletal: Positive for back pain. Objective BP 138/86 Pulse 93 Temp 36.9 C (98.4 F) (Tympanic) Resp 18 Wt 73.9 kg (162 lb 14.7 oz) LMP 11/19/2016 (Within Days) SpO2 98% BMI 27.97 kg/m Physical Exam Vitals and nursing note reviewed. Constitutional: General: She is not in acute distress. Appearance: Normal appearance. She is not toxic-appearing. HENT: Nose: Nose normal. Mouth/Throat: Mouth: Mucous membranes are moist. Eyes: Conjunctiva/sclera: Conjunctivae normal. Cardiovascular: Rate and Rhythm: Normal rate and regular rhythm. Pulmonary: Effort: Pulmonary effort is normal. Breath sounds: Normal breath sounds. Abdominal: General: Abdomen is flat. Palpations: Abdomen is soft. Tenderness: There is no abdominal tenderness. There is no right CVA tenderness, left CVA tenderness, guarding or rebound. Skin: General: Skin is warm and dry. Neurological: Mental Status: She is alert. Assessment and Plan ASSESSMENT/PLAN: 1. Acute midline low back pain without sciatica - ICD9: 724.2, ICD10: M54.50 - UA DIP, URINE (POC)-normal. -Will send urine for culture. -Please treat if urine culture positive. -Recommend fluids, rest. Suspect symptoms most likely viral illness. - URINE CULTURE Diagnosis and treatment plan were discussed and questions were answered to the patient's satisfaction. Pt acknowledged understanding of concepts and follow up plan. Specific signs and symptoms that would indicate the need for higher level of care were discussed in detail warranting prompt ER evaluation. REJI Patten [facility] NoteHNO ID: [id number] Author: CHRISTIAN JIN PA Service: ? Author Type: Physician Custom Bow Maker Type: Progress Notes Filed: 06/13/2024 13:48 Note Text: This note was created using [employer]riter. Wicho Melchor is a 59 year old female. HPI 59-year-old female presents for low back pain, nausea, generally on feeling well for the past couple of days. Patient states she went to be checked for UTI she has had these in the past and felt this way. Patient states she has had a little bit of urinary urgency. No frequency or burning. No blood in the urine. She has a little bit of low back pain, but states this is not really out of the ordinary for her. She has had some nausea and headache. No vomiting. No fevers. No other complaint. 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 lactobacillus combination no.8 (ADULT PROBIOTIC ORAL) Take by mouth. cholecalciferol, vitamin D3, (VITAMIN D-3) 10 mcg (400 unit) cap Take 400 Units by mouth once daily. estradiol (ESTRACE) 0.01 % (0.1 mg/gram) vaginal cream pea-sized amount to lower vagina qhs 3 times a week venlafaxine ER (EFFEXOR XR) 37.5 mg 24 hr capsule Take 1 capsule by mouth daily at bedtime. VITAMIN B COMPLEX (SUPER B COMPLEX ORAL) Take by mouth. Fish Oil-DHA-EPA 1,200-144-216 mg cap Take by mouth. Melatonin 5 mg tab Take 1 tablet by mouth daily at bedtime. docusate sodium (STOOL SOFTENER) 100 mg capsule Take 1 capsule by mouth twice daily. ascorbic acid (VITAMIN C) 500 mg tablet Take 1 tablet by mouth three times daily. COMPOUNDED PRESCRIPTION D-3 1000IU take once daily fexofenadine (EVITA) 60 mg ORAL tablet Take one(1) tablet twice daily. ibuprofen (ADVIL) 200 mg ORAL tablet take as directed as needed MULTI-VITAMIN ORAL Take by mouth. (Patient not taking: Reported on 06/13/2024) phenazopyridine (PYRIDIUM) 100 mg tablet Take 1 tablet by mouth three times daily as needed. (Patient not taking: Reported on 06/13/2024) Garlic cap Take by mouth once daily. (Patient not taking: Reported on 06/13/2024) Magnesium 250 mg tab Take 250 mg by mouth. (Patient not taking: Reported on 06/13/2024) UBIDECARENONE (CO Q-10 ORAL) Take by mouth. (Patient not taking: Reported on 06/13/2024) CYCLOSPORINE (RESTASIS OPHTHALMIC) Use in eyes. (Patient not taking: Reported on 06/13/2024) FAMILY HISTORY Problem Relation Age of Onset None Mother Diabetes Father Neuropathy Heart Father Social History Tobacco Use Smoking status: Never Smokeless tobacco: Never Substance Use Topics Alcohol use: No Drug use: No Review of Systems Constitutional: Negative for chills and fever. HENT: Negative for congestion, ear pain and sore throat. Respiratory: Negative for cough and shortness of breath. Cardiovascular: Negative for chest pain. Gastrointestinal: Positive for nausea. Negative for abdominal pain, diarrhea and vomiting. Genitourinary: Positive for urgency. Musculoskeletal: Positive for back pain. Objective BP 138/86 Pulse 93 Temp 36.9 ?C (98.4 ?F) (Tympanic) Resp 18 Wt 73.9 kg (162 lb 14.7 oz) LMP 11/19/2016 (Within Days) SpO2 98% BMI 27.97 kg/m? Physical Exam Vitals and nursing note reviewed. Constitutional: General: She is not in acute distress. Appearance: Normal appearance. She is not toxic-appearing. HENT: Nose: Nose normal. Mouth/Throat: Mouth: Mucous membranes are moist. Eyes: Conjunctiva/sclera: Conjunctivae normal. Cardiovascular: Rate and Rhythm: Normal rate and regular rhythm. Pulmonary: Effort: Pulmonary effort is normal. Breath sounds: Normal breath sounds. Abdominal: General: Abdomen is flat. Palpations: Abdomen is soft. Tenderness: There is no abdominal tenderness. There is no right CVA tenderness, left CVA tenderness, guarding or rebound. Skin: General: Skin is warm and dry. Neurological: Mental Status: She is alert. Assessment and Plan ASSESSMENT/PLAN: 1. Acute midline low back pain without sciatica - ICD9: 724.2, ICD10: M54.50 - UA DIP, URINE (POC)-normal. -Will send urine for culture. -Please treat if urine culture positive. -Recommend fluids, rest. Suspect symptoms most likely viral illness. - URINE CULTURE Diagnosis and treatment plan were discussed and questions were answered to the patient's satisf (more content not included)...[facility] 09-24-2023 NotePap Smear Specimen AdequacyJanuary 2023 4:22pmComment. Satisfactory for evaluation. Endocervical and/or squamous metaplasticcells (endocervical component)are present.[facility] INTERFACED A#[id number] Medical Specialty Hospital - ColumbusComment on above:Satisfactory for evaluation. Endocervical and/or squamous metaplasticcells (endocervical component)are present.09-24-2023 NotePap Smear Specimen AdequacyJanuary 2023 4:22pmComment.Satisfactory for evaluation. Endocervical and/or squamous metaplasticcells (endocervical component)are present.[facility] INTER[facility]ACED A#[id number] Medical Specialty Hospital - [place] Comment on above:Satisfactory for evaluation. Endocervical and/or squamous metaplasticcells (endocervical component)are present.09-24-2023 NotePap Smear Specimen AdequacyJanuary 2023 5:22pmComment.Satisfactory for evaluation. Endocervical and/or squamous metaplasticcells (endocervical component)are present.[facility] INTERFACED A#[id number] Regional Medical CenterComment on above: Satisfactory for evaluation. Endocervical and/or squamous metaplasticcells (endocervical component)are present.Evaluation note* Diagnosis Onset Date Resolution Status Encounter for routine gynecological examination noneactive [facility] Work Phone: Evaluation note* Diagnosis Onset Date Resolution Status Nausea acute [facility] Work Phone: Evaluation note* Diagnosis Acute midline low back pain without sciatica- Primary documented in this encounter [facility]Evalutidal[facility] noteNo assessment information availableWCoshocton Regional Medical Center Work Phone: Reason for referral (narrative)No reason for referral information availableWCoshocton Regional Medical Center Work Phone: Chief Complaint and Reason for Visit Chief Complaint Admit Date Annual (COMMUNITY DIRECTOR) November 03, 2024 1:23 pm screening mammogram December 28, 2024 10: 44am Reason for Visit Admit Date Encounter for routine gynecological exam ination November 03, 2024 1:23pm Chief Complaint uti symptoms Annual (COMMUNITY DIRECTOR) Reason for Visit Encounter for routin e gynecological examination Chief Complaint uti symptoms Annual (COMMUNITY DIRECTOR) SCREENING Reason for Visit Encounter for routin e gynecological examination Chief Complaint EORDER- TAILBONE JOSIANE N- ongoing pain CONCERN FOR UTI Reason for Visit Nausea Chief Complaint Annual (COMMUNITY DIRECTOR) ABD PAIN Reason for Visit Encounter for routin e gynecological examination Chief Complaint Annual (COMMUNITY DIRECTOR) ABD PAIN EORDER ABD PAIN Reason for Visit Encounter for routin e gynecological examination Chief Complaint Annual (COMMUNITY DIRECTOR) ABD PAIN EORDER ABD PAIN SCREENING Reason for Visit Encounter for routin e gynecological examination Chief Complaint Admit Date Annual (COMMUNITY DIRECTOR) November 03, 2024 1:23 pm Chief Complaint Admit Date screening mammogram December 28, 2024 10: 44am EORDERS March 29, 2025 9:59 am Family History No Family History Records Found Relationship Condition Age at Onset Recorded Date/T lauren father Diabetes mellitus Unknown Cardiac disease Unknown Hypertension Unknown Kidney disorder Unknown mother Cardiac arrhythmia Unknown grandmother Cerebrovascular accident (CVA) Unknown Summary Purpose Advance Directives No Advanced Directives Records FoundNo Advanced Directives Records Found Additional Source Comments Care Teams (unrecognized sec tion and content) Team Status: Active Member Role Status Dates Dr. Drew Bolanos MD Family Provider Active Amber Metcalf DO Primary Care Provider Active Team Status: Inactive Member Role Status Dates No Primary Care Physician Referring Provider Active Dr. Nona Campbell DO Attending Provider Activ e Amber Metcalf , Primary Care Provider Active Team Status: Inactive Member Role Status Dates Amber Metcalf DO Primary Care Provider, Referring Provider Active Dr. Diana Null MD Attending Provider Active Team Status: Inactive Member Role Status Dates Amber Metcalf DO Primary Care Provider Active Dr. Diana Null MD Attending Provider, Referr ing Provider Active Team Status: Inactive Member Role Status Dates Amber Metcalf DO Primary Care Provider Active Dr. Nona Campbell DO Attending Provider Activ e Team Status: Inactive Member Role Status Dates Amber Metcalf DO Primary Care Provider, Referring Provider Active REJI Harris Attending Provider Active Team Status: Inactive Member Role Status Dates Amber Metcalf DO Primary Care Provider Active JURGEN Shrestha Attending Provider, Referr ing Provider Active Team Status: Inactive Member Role Status Dates Amber Metcalf DO Primary Care Provider Active REJI Harris Attending Provider, Referring Provi pradeep Active Team Status: Inactive Member Role Status Dates Amber Metcalf DO Primary Care Provider, Referring Provider Active Dr. Nona Campbell DO Attending Provider Activ e Team Status: Inactive Member Role Status Dates Amber Metcalf DO Primary Care Provider Active Dr. Nona Campbell DO Attending Provider, Refe rring Provider Active Team Status: Inactive Member Role Status Dates Amber Metcalf DO Primary Care Provi pradeep, Attending Provider, Referring Provider Active Team Status: Active Member Role Status Dates Amber Metcalf DO Primary Care Provider Active Dr. Nona Campbell , DO Attending Provider, Refe rring Provider Active Patrol Lady Relationship Specialty Start Date End Date Ruth Drew MccabeDO PCP - General Family Medicine 3/17/20 Patrol Lady Relationship Specialty Start Date End Date Drew Miranda DO PCP - General Family Medicine 11/16/19 Team Status: Active Member Role Status Dates Dr. Drew Bolanos MD Family Provider Active Akash Henderson MD Primary Care Provider Active Team Status: Inactive Member Role Status Amber Henderson MD Primary Care Provider Active St art: November 03, 2024 End: November 03, 2024 Akash Henderson MD Referring Provider Active Start : November 03, 2024 End: November 03, 2024 Dr. Nona Campbell DO Attending Provider Activ e Start: November 03, 2024 End: November 03, 2024 Team Status: Inactive Member Role Status Amber Henderson MD Primary Care Provider Active St art: November 11, 2024 End: November 11, 2024 Sally Chávez TRIAGE CLINICIAN, TRIAGE CLINICIAN-C Attending Provider Active Start: November 11, 2024 End: November 11, 2024 Sally Chávez TRIAGE CLINICIAN, TRIAGE CLINICIAN-C Referring Provider Active Start: November 11, 2024 End: November 11, 2024 Team Status: Active Member Role Status Amber Henderson MD Primary Care Provider Active Team Status: Inactive Member Role Status Amber Henderson MD Primary Care Provider Active St art: December 28, 2024 End: December 28, 2024 Dr. Nona Campbell DO Attending Provider Activ e Start: December 28, 2024 End: December 28, 2024 Dr. Nona Campbell DO Referring Provider Activ e Start: December 28, 2024 End: December 28, 2024 Team Status: Active Member Role/Relationship Status Amber Henderson MD Primary Care Provider Active Team Status: Inactive Member Role/Relationship Status Amber Henderson MD Primary Care Provider Active St art: December 28, 2024 End: December 28, 2024 Dr. Nona Campbell DO Attending Provider Activ e Start: December 28, 2024 End: December 28, 2024 Dr. Nona Campbell DO Referring Provider Activ e Start: December 28, 2024 End: December 28, 2024 Team Status: Inactive Member Role/Relationship Status Dates Akash Henderson MD Primary Care Provider Active St art: March 29, 2025 End: March 29, 2025 Akash Henderson MD Attending Provider Active Start : March 29, 2025 End: March 29, 2025 Akash Henderson MD Referring Provider Active Start : March 29, 2025 End: March 29, 2025 Goals (unrecognized section and content) Goals may be documented in a n alternate sectionGoals may be documented in an alternate sectionGoals may be documented in an alternate sectionGoals may be documented in an alternate sectionGoals may be documented in an alternate sectionGoals may be documented in an alternate sectionGoals may be documented in an alternate sectionGoals may be documented in an alternate sectionGoals may be documented in an alternate sectionGoals may be documented in an alternate section INFORMATION SOURCE (unrecogn ized section and content) DATE CREATED AUTHOR 06/15/2024 [facility] DATE CREATED AUTHOR AUTHOR'S ORGANIZ ATION 04/09/2025 [facility] Source Comments (unrecognize d section and content) In the event this informatio n is protected by the Federal Confidentiality of Alcohol and Drug Abuse Patient Records regulations: The Federal rules restrict any use of the information to criminally investigate or prosecute any alcohol or drug abuse patient.[facility]burgIn the event this information is protected by the Federal Confidentiality of Alcohol and Drug Abuse Patient Records regulations: The Federal rules restrict any use of the information to criminally investigate or prosecute any alcohol or drug abuse patient.[facility] Reason for Visit (unrecogniz ed section and content) Reason Comments Pain, Back Low back pain, and n ausea x 4 days Reason Comments Results FOR RECORDS PERTAINING TO PATIENTS WHO ARE [...] BE BASED ON THE PRIMARY CLINICAL RECORDS. [employer] provides no warranty or guarantee of the accuracy or completeness of information in this document.
[2025-07-27 18:29] LABS: Vitamin D,25 Hydroxy 42.6 ng/mL (30-100)
== END | disposition home or self-care (01) ==
LOC: MTLAB 15:13
PROVIDERS: PCP Family Medicine
DX: R53.83 Other fatigue (principal)
CPT/HCPCS: 82306; 84443

== ENCOUNTER → 2025-08-22 | Outpatient (CLI) | payer OTHER, SELFPAY ==
--- NOTE | 2025-08-22 13:45 | CT_ITS ---
PROCEDURE: BRAIN/HEAD W/WO CONTRAST 08/22/2025 REASON FOR EXAM: Clinical history of numbness of lips TECHNIQUE: Procedure Code: CTBRWW Modality: CT Procedure: BRAIN/HEAD W/WO CONTRAST Coronal and Sagittal reconstruction series were provided. CONTRAST: Isovue-300 VOLUME: 92 mL One or more dose reduction techniques were used (e.g., Automated exposure control, adjustment of the mA and/or kV according to patient size, use of iterative reconstruction technique). RADIATION DOSE SUMMARY: DLP: 1580.97 mGycm COMPARISON: None available. FINDINGS: No acute hemorrhage. No acute infarct. No significant mass effect or brain herniation. The ventricular system and sulci/fissures are within normal limits of size and configuration for the patient's stated age. No extra-axial fluid collection. The basal cisterns are patent. The mastoid air cells are clear. The paranasal sinuses are predominantly clear. The calvarium appears intact. CT/Brain/Head W/WO Contrast IMPRESSION: No intracranial enhancing lesion. No CT evidence of acute intracranial hemorrh age, infarct, or significant mass effect. Reading Location: [id number]
== END | disposition home or self-care (01) ==
LOC: CT 13:44
PROVIDERS: PCP Family Medicine; Referring Provider Family Medicine; Visit Provider Family Medicine
DX: R20.0 Anesthesia of skin (principal)
CPT/HCPCS: 70470; Q9967